=== PATIENT | female | born 1980 | race Caucasian/White ===

== ENCOUNTER 2020-10-12 12:38 | Emergency (ER) | payer MEDICARE, MEDICAID, SELFPAY ==
[2020-10-12 12:50] VITALS: BP 104/71; PULSE 120; RESP 18; TEMP 36.8; O2SAT 94; BMI 31.8
--- NOTE | 2020-10-12 13:27 | CTR_ITS ---
PROCEDURE INFORMATION: Exam: CT Abdomen And Pelvis With Contrast Exam date and time: 10/12/2020 1:27 PM Age: 40 years old Clinical indication: Abdominal pain; Localized; Right lower quadrant (rlq); Prior surgery; Surgery type: Kidney transplant; Additional info: Rlq pain, appy, R kidney transplant but has failed at 19yo. TECHNIQUE: Imaging protocol: Computed tomography of the abdomen and pelvis with contrast. Axial, coronal and sagittal reformatted images were created and reviewed. Radiation optimization: All CT scans at this facility use at least one of these dose optimization techniques: automated exposure control; mA and/or kV adjustment per patient size (includes targeted exams where dose is matched to clinical indication); or iterative reconstruction. Contrast material: VISI 320; Contrast volume: 75 ml; Contrast route: INTRAVENOUS (IV); COMPARISON: MRI Lumbar Spine w/o [id number] 08/11/2017 3:27 PM RADIATION DOSE METRICS: Total DLP (mGy-cm): 1342.73 FINDINGS: Lungs: Linear stranding and groundglass at the lung bases, likely due to atelectasis and/or scarring. Liver: Unremarkable. Gallbladder and bile ducts: Mild intrahepatic biliary ductal dilatation. Pancreas: Unremarkable. Spleen: Unremarkable. Adrenal glands: Normal. No mass. Kidneys and ureters: Atrophic kidneys. Calcified right lower quadrant renal transplant. No radiodense calculi. No hydronephrosis. Severe renal osteodystrophy. Multilevel vertebral body loss of height, most severe at L4. No CT evidence of acute fracture or dislocation. Total hip arthroplasties in place with an expansile lucent lesion associated with the left acetabular component, similar to prior and likely secondary to osteolysis. Stomach and bowel: Moderate to large amount of retained stool in the right colon. Mild wall thickening of the terminal ileum and cecum. No obstruction. No pneumatosis. Appendix: Normal. Intraperitoneal space: No free fluid. No organized fluid collection. No free air. Vasculature: Mild atherosclerotic disease. No aneurysm or dissection. Lymph nodes: No pathologically enlarged lymph nodes. Urinary bladder: Unremarkable as visualized. Reproductive: Unremarkable. Bones/joints: See Kidneys and ureters finding. Soft tissues: Unremarkable. CT/CT abdomen pelvis w con* [id number] IMPRESSION: 1. Findings suggestive of mild terminal ileitis and cecitis, as described above. 2. Additional findings, as above. Radiation Dose CTDIVOL = (mGy): DLP = 1342.73 (mGy-cm)
[2020-10-12 14:11] LABS: Basophils % 0.3 %; Eosinophils # 0.2 10^3/uL (0.0-0.8); Eosinophils % 1.6 %; Hematocrit 36.2 % (37.0-47.0); Hemoglobin 12.1 g/dL (11.5-15.3); Lymphocytes # 0.8 10^3/uL (0.8-4.8); Lymphocytes % 7.1 %; Mean Corpuscular HGB Conc 33.4 g/dL (30.0-36.0); Mean Corpuscular Hemoglobin 29.6 pg (28.0-34.0); Mean Corpuscular Volume 88.5 fL (81-99); Mean Platelet Volume 9.6 fL (7.4-10.4); Monocytes # 0.6 10^3/uL (0.2-0.9); Monocytes % 5.6 %; Neutrophils # 9.68 10^3/uL (1.8-7.7); Nucleated Red Blood Cells % 0 %; Platelet Count 176 10^3/cmm (130-400); Red Blood Count 4.09 10^6/uL (4.1-5.3); White Blood Count 11.4 10^3/uL (4.0-10.0)
--- NOTE | 2020-10-12 14:23 | W.ED.ABDPA2 ---
Documented by User: Carly Ramsey DO 10/12/20 17:12 HPI - Abdominal Pain General: Chief Complaint: Abdominal Pain Stated Complaint: right side pain lower abd Time Seen by Provider: 10/12/20 13:00 History of Present Illness: HPI narrative: 40-year-old female dialysis patient resents with right lower quadrant abdominal pain that started yesterday and it is associated with anorexia and nausea. However patient says she has chronic nausea. Patient had a right renal transplant when she was 10 years old and it failed when she was 19 and she has been on dialysis for 21 years. She denies any fevers. She has chronic tachycardia and that is not unusual for her heart rate. She has no diarrhea. She does not produce any urine. She felt that the car ride possibly was uncomfortable but she cannot be certain. No known fevers Review of Systems Narrative: General: denies fatigue, fever or chills HEENT: denies ear pain, denies nasal congestion, denies vision changes, denies sore throat Neck: denies masses or pain Resp: denies cough, denies shortness of breath, denies pleuritic pain Cardio: denies chest pain, denies edema GI: RLQ abdominal pain, see HPI denies black/tarry or bloody stools : denies hematuria, denies dysuria Neuro: denies headache, denies dizziness, denies motor or sensory changes Musculoskeletal: denies pain, denies swelling Skin: denies rashes Psych: denies SI or HI Endocrine: denies thyroid symptoms, denies lymphadenopathy all over ROS reviewed and patient denies Physical Exam Narrative: EXAM NARRATIVE: General: a/o/3, no distress Head: atraumatic HEENT: normal eyes, normal conjunctiva, normal hearing, normal external nose, normal mouth, mucous membranes moist Neck: FROM, trachea midline Chest: normal expansion, no gross deformities Resp: normal speech, no retractions, no accessory muscle use, CTA bilaterally Cardio: regular rate and rhythm and no murmur, no peripheral edema, normal peripheral pulses barrel chest GI: soft,tender R mid to RLQ, no guarding normal BS : deferred Musculoskeletal: FROM, no pain or gross deformities, graft right arm Neuro: a/o appropriate for age, no gross motor or sensory deficits, CN II-XII grossly intact, normal coordination, normal speech Skin: no rashes Psych: cooperative, normal mood and effect Course Vital Signs: Vital signs: Vital Signs Temperature 98.2 F 10/12/20 12:50 Pulse Rate 114 H 10/12/20 19:07 Respiratory Rate 18 10/12/20 20:14 Blood Pressure 90/62 10/12/20 20:14 Pulse Oximetry 97 10/12/20 20:14 MDM - Abdominal Pain MDM Narrative: Medical decision making narrative: I contacted nephrology Dr. Vasquez and patient is due for dialysis tomorrow therefore he approved for me to give her IV contrast. CT scan shows a normal appendix she has a moderate to large amount of stool in the right side of her colon and some mild inflammation of her bowels. Spoke with the patient she says now that she thinks about it had been taking which she feels is excess fluid off and that maybe she is been a little dry or dehydrated. She appears more comfortable now in the ER. Her potassium is significantly high at 7.9 but patient says she is really not surprised is been running high in dialysis is aware of it. But I will consult with nephrology. However we discussed about her stool issue and she has Dulcolax at home that she takes [id number] daily so what working to do is try to get her evacuated whether it be with the Dulcolax and the Kayexalate that she also has at home and then she is can a see how her pain is and we discussed the potential of a colitis and she has some inflammation in that area but the question is is a constipation causing inflammation of the inflammation causing the constipation. So we came up with the plan that she is going to take 20 mg of Dulcolax when she gets home tonight and see if that improves her pain if in the next 24 hours she is continued to have pain she is can start antibiotics on Tuesday go ahead and write out Cipro and Flagyl and I will speak to nephrology as well about a renal dose she is only can get those filled if she does not improve on her pain Patient's potassium however came back at 7.9 patient says that dialysis is aware of it and knows that she runs this high I find this to be extremely high and do not feel comfortable sending her home without clearance with nephrology and making sure they are aware of it. She had a normal sinus rhythm rate was [address] changes or sinusoidal pattern. Dr Welch agrees that absolutely she needs treatment she will get 1 amp of calcium gluconate 10 mg of insulin and amp of D50 as well as 30 mg of Kayexalate and to repeat her potassium and she can only go home when it is less than 6. As far as antibiotics we will write her out for some Levaquin 750 mg to take Fridays after her dialysis skip Sundays and a normal dose her on the Flagyl patient again says she only wants to take those if she does not improve with bowel movements. We will repeat her potassium in a couple of hours care was transitioned at shift change to Dr. Kolb who will repeat her potassium and disposition accordingly Lab Data: Labs: Lab Results 10/12/20 10/12/20 10/12/20 Range/Units 14:04 14:04 15:47 WBC 11.4 H (4.0-10.0) 10^3/ uL RBC 4.09 L (4.1-5.3) 10^6/u L Hgb 12.1 (11.5-15.3) g/dL Hct 36.2 L (37.0-47.0) % MCV 88.5 (81-99) fL MCH 29.6 (28.0-34.0) pg MCHC 33.4 (30.0-36.0) g/dL RDW 16.0 H (12.1-15.1) % Plt Count 176 (130-400) 10^3/c mm MPV 9.6 (7.4-10.4) fL Neut % (Auto) 85.0 % Lymph % (Auto) 7.1 % Sullivan % (Auto) 5.6 % Eos % (Auto) 1.6 % Baso % (Auto) 0.3 % Neut # (Auto) 9.68 H (1.8-7.7) 10^3/u L Lymph # (Auto) 0.8 (0.8-4.8) 10^3/u L Sullivan # (Auto) 0.6 (0.2-0.9) 10^3/u L Eos # (Auto) 0.2 (0.0-0.8) 10^3/u L Baso # (Auto) 0.0 (0.0-0.1) 10^3/u L Nucleated RBC % (a uto) 0 % Nucleated RBCs # 0.0 /100WBC Sodium Cancelled 128 L Potassium Cancelled 7.9 H* Chloride Cancelled 86 L Carbon Dioxide Cancelled 28 Anion Gap Cancelled 21.9 H BUN Cancelled 71 H Creatinine Cancelled 7.2 H* GFR Calculation Cancelled 6.3 L Glucose Cancelled 75 POC Glucose (70-110) mg/dL Calculated Osmolal ity Cancelled 286 Calcium Cancelled 9.2 Total Bilirubin Cancelled 0.2 AST Cancelled 16 ALT Cancelled 10 Alkaline Phosphata se Cancelled 125 H Total Protein Cancelled 7.2 Albumin Cancelled 3.7 Globulin Cancelled 3.5 Lipase Cancelled 17 10/12/20 10/12/20 Range/Units 19:05 19:28 WBC (4.0-10.0) 10^3/ uL RBC (4.1-5.3) 10^6/u L Hgb (11.5-15.3) g/dL Hct (37.0-47.0) % MCV (81-99) fL MCH (28.0-34.0) pg MCHC (30.0-36.0) g/dL RDW (12.1-15.1) % Plt Count (130-400) 10^3/c mm MPV (7.4-10.4) fL Neut % (Auto) % Lymph % (Auto) % Sullivan % (Auto) % Eos % (Auto) % Baso % (Auto) % Neut # (Auto) (1.8-7.7) 10^3/u L Lymph # (Auto) (0.8-4.8) 10^3/u L Sullivan # (Auto) (0.2-0.9) 10^3/u L Eos # (Auto) (0.0-0.8) 10^3/u L Baso # (Auto) (0.0-0.1) 10^3/u L Nucleated RBC % (a uto) % Nucleated RBCs # /100WBC Sodium Potassium 6.7 H* Chloride Carbon Dioxide Anion Gap BUN Creatinine GFR Calculation Glucose POC Glucose 61 L (70-110) mg/dL Calculated Osmolal ity Calcium Total Bilirubin AST ALT Alkaline Phosphata se Total Protein Albumin Globulin Lipase Discharge Plan Discharge Patient Disposition: Home Clinical Impression: Acute hyperkalemia, ESRD on dialysis Abdominal pain Qualifiers: Abdominal location: right lower quadrant Qualified Code(s): R10.31 - Right lower quadrant pain Constipation Qualifiers: Constipation type: unspecified constipation type Qualified Code(s): K59.00 - Constipation, unspecified Condition: Stable Prescriptions: New levofloxacin 750 mg tablet 750 mg PO Q24H Qty: 10 RF: 0 metronidazole 500 mg tablet 500 mg PO Q8H 7 Days Qty: 21 RF: 0 Discharge Orders: Discharge ED (Routine); Ordered 10/12/20 Ordered By: Adrien Kolb Discharge Diet: Advance as tolerated Discharge Activity: Increase activity as tolerated Patient Instructions: Abdominal Pain (ED), Opioid Safety Activity Restrictions/Additional Instructions: Take your Kayexalate when you get home. Go ahead and try 20 mg of Dulcolax at your discretion either tonight or you can wait until after dialysis tomorrow. See if this improves your pain. If you continue to have pain then you need to start the antibiotics that would be Levaquin 750 mg 1 tablet after dialysis on Fridays and skip Tuesday for total of 10 doses The Flagyl is 500 mg 3 times a day for 7 days Get dialysis tomorrow as scheduled repeat your potassium Return if pain or worsening of symptoms fevers Thank you for choosing [facility] for your healthcare needs today. Please realize this is an emergency room and that we are providing you with a medical screening exam and this may not be complete and all inclusive of all the testing and or work up that you may need to determine your ailment or severity of your illness. It is very important that you follow up as instructed or that you return to the Emergency Department should you have concerns or if your condition changes or worsens in any way. Coding Level of Care Code ED Chief Physical Therapist for Chg Fwd Documented by User: Adrien Kolb, 10/13/20 00:42 HPI - Abdominal Pain General: Chief Complaint: Abdominal Pain Stated Complaint: right side pain lower abd Time Seen by Provider: 10/12/20 13:00 Course Vital Signs: Vital signs: Vital Signs Temperature 98.2 F 10/12/20 12:50 Pulse Rate 114 H 10/12/20 19:07 Respiratory Rate 18 10/12/20 20:14 Blood Pressure 90/62 10/12/20 20:14 Pulse Oximetry 97 10/12/20 20:14 MDM - Abdominal Pain MDM Narrative: Medical decision making narrative: Repeat potassium is 6.7, which the patient says is normal for her. Blood sugar sent to 61, as she had not eaten all day, so she is eating here and is feeling better. We will allow her home with previous instructions. She knows to take her Kayexalate when she gets home. Lab Data: Labs: Lab Results 10/12/20 10/12/20 10/12/20 Range/Units 14:04 14:04 15:47 WBC 11.4 H (4.0-10.0) 10^3/ uL RBC 4.09 L (4.1-5.3) 10^6/u L Hgb 12.1 (11.5-15.3) g/dL Hct 36.2 L (37.0-47.0) % MCV 88.5 (81-99) fL MCH 29.6 (28.0-34.0) pg MCHC 33.4 (30.0-36.0) g/dL RDW 16.0 H (12.1-15.1) % Plt Count 176 (130-400) 10^3/c mm MPV 9.6 (7.4-10.4) fL Neut % (Auto) 85.0 % Lymph % (Auto) 7.1 % Sullivan % (Auto) 5.6 % Eos % (Auto) 1.6 % Baso % (Auto) 0.3 % Neut # (Auto) 9.68 H (1.8-7.7) 10^3/u L Lymph # (Auto) 0.8 (0.8-4.8) 10^3/u L Sullivan # (Auto) 0.6 (0.2-0.9) 10^3/u L Eos # (Auto) 0.2 (0.0-0.8) 10^3/u L Baso # (Auto) 0.0 (0.0-0.1) 10^3/u L Nucleated RBC % (a uto) 0 % Nucleated RBCs # 0.0 /100WBC Sodium Cancelled 128 L Potassium Cancelled 7.9 H* Chloride Cancelled 86 L Carbon Dioxide Cancelled 28 Anion Gap Cancelled 21.9 H BUN Cancelled 71 H Creatinine Cancelled 7.2 H* GFR Calculation Cancelled 6.3 L Glucose Cancelled 75 POC Glucose (70-110) mg/dL Calculated Osmolal ity Cancelled 286 Calcium Cancelled 9.2 Total Bilirubin Cancelled 0.2 AST Cancelled 16 ALT Cancelled 10 Alkaline Phosphata se Cancelled 125 H Total Protein Cancelled 7.2 Albumin Cancelled 3.7 Globulin Cancelled 3.5 Lipase Cancelled 17 10/12/20 10/12/20 Range/Units 19:05 19:28 WBC (4.0-10.0) 10^3/ uL RBC (4.1-5.3) 10^6/u L Hgb (11.5-15.3) g/dL Hct (37.0-47.0) % MCV (81-99) fL MCH (28.0-34.0) pg MCHC (30.0-36.0) g/dL RDW (12.1-15.1) % Plt Count (130-400) 10^3/c mm MPV (7.4-10.4) fL Neut % (Auto) % Lymph % (Auto) % Sullivan % (Auto) % Eos % (Auto) % Baso % (Auto) % Neut # (Auto) (1.8-7.7) 10^3/u L Lymph # (Auto) (0.8-4.8) 10^3/u L Sullivan # (Auto) (0.2-0.9) 10^3/u L Eos # (Auto) (0.0-0.8) 10^3/u L Baso # (Auto) (0.0-0.1) 10^3/u L Nucleated RBC % (a uto) % Nucleated RBCs # /100WBC Sodium Potassium 6.7 H* Chloride Carbon Dioxide Anion Gap BUN Creatinine GFR Calculation Glucose POC Glucose 61 L (70-110) mg/dL Calculated Osmolal ity Calcium Total Bilirubin AST ALT Alkaline Phosphata se Total Protein Albumin Globulin Lipase Discharge Plan Discharge Patient Disposition: Home Clinical Impression: Acute hyperkalemia, ESRD on dialysis Abdominal pain Qualifiers: Abdominal location: right lower quadrant Qualified Code(s): R10.31 - Right lower quadrant pain Constipation Qualifiers: Constipation type: unspecified constipation type Qualified Code(s): K59.00 - Constipation, unspecified Condition: Stable Prescriptions: New levofloxacin 750 mg tablet 750 mg PO Q24H Qty: 10 RF: 0 metronidazole 500 mg tablet 500 mg PO Q8H 7 Days Qty: 21 RF: 0 Discharge Orders: Discharge ED (Routine); Ordered 10/12/20 Ordered By: Adrien Kolb Discharge Diet: Advance as tolerated Discharge Activity: Increase activity as tolerated Patient Instructions: Abdominal Pain (ED), Opioid Safety Activity Restrictions/Additional Instructions: Take your Kayexalate when you get home. Go ahead and try 20 mg of Dulcolax at your discretion either tonight or you can wait until after dialysis tomorrow. See if this improves your pain. If you continue to have pain then you need to start the antibiotics that would be Levaquin 750 mg 1 tablet after dialysis on Fridays and skip Tuesday for total of 10 doses The Flagyl is 500 mg 3 times a day for 7 days Get dialysis tomorrow as scheduled repeat your potassium Return if pain or worsening of symptoms fevers Thank you for choosing [facility] for your healthcare needs today. Please realize this is an emergency room and that we are providing you with a medical screening exam and this may not be complete and all inclusive of all the testing and or work up that you may need to determine your ailment or severity of your illness. It is very important that you follow up as instructed or that you return to the Emergency Department should you have concerns or if your condition changes or worsens in any way. Coding Level of Care Code ED Chief Physical Therapist for Robbi Ng
[2020-10-12] MEDS: ondansetron 2 mg/ML SDV 2 mL 8 MG IVP (14:35)
[2020-10-12] MEDS: iodixanol 320 mg/mL 100mL Btl IV (14:52)
[2020-10-12 15:42] VITALS: RESP 18
[2020-10-12] MEDS: HYDROmorphone 1 mg/mL INJ 1 mL IVP (15:42)
[2020-10-12 16:15] LABS: Alanine Aminotransferase 10 U/L (0-33); Albumin Level 3.7 g/dL (3.5-5.2); Alkaline Phosphatase 125 IU/L (35-105); Anion Gap 21.9 (5-19); Aspartate Amino Transferase 16 U/L (0-32); Blood Urea Nitrogen 71 mg/dL (6-20); Calcium 9.2 mg/dL (8.5-10.5); Carbon Dioxide 28 mmol/L (22-29); Chloride 86 mmol/L (98-107); Globulin 3.5 g/dL (1.3-4.6); Glomerular Filtration Rate 6.3 mL/min (90-130); Glucose 75 mg/dL (65-115); Lipase 17 U/L (13-60); Osmolality Calculated 286 mOsm/kg (285-295); Sodium 128 mmol/L (136-145); Total Bilirubin 0.2 mg/dL (0.15-1.2); Total Protein 7.2 g/dL (6.6-8.7)
[2020-10-12 16:21] LABS: Potassium 7.9 mmol/L (3.5-5.1)
--- NOTE | 2020-10-12 16:29 | ECG_ITS ---
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 Measurements Intervals [place] Rate: 100 P: 21 NC: 159 QRS: -47 QRSD: 120 T: 57 QT: 334 QTc: 432 Interpretive Statements SINUS TACHYCARDIA LEFT ANTERIOR FASCICULAR BLOCK [QRS AXIS <= -45, QR IN I, RS IN II] Compared to ECG 03/02/2017 15:13:18 Left anterior fascicular block now present Left ventricular hypertrophy no longer present Electronically Signed On 10-12-2020 19:11:32 CDT by Valery Cuba M.D. [id number]
[2020-10-12] MEDS: sodium polystyrene sulfonate 15 gm/60 mL Btl 30 GM PO (17:31)
[2020-10-12] MEDS: insulin regular-human 100 units/1 mL 10 UNIT IVP (17:32)
[2020-10-12] MEDS: dextrose 50% syringe 50 mL IVP (17:32)
[2020-10-12] MEDS: sodium bicarbonate 8.4% 1 mEq/mL 50mL Syr 50 MEQ IVP (18:11)
[2020-10-12 18:18] VITALS: BP 89/52; PULSE 121; RESP 20; O2SAT 97
[2020-10-12 18:41] VITALS: BP 90/56; PULSE 107; RESP 20; O2SAT 98
[2020-10-12 19:07] VITALS: BP 99/64; PULSE 114; RESP 18; O2SAT 94
[2020-10-12 19:09] LABS: Glucose Point of Care 61 mg/dL (70-110)
[2020-10-12 19:59] LABS: Potassium 6.7 mmol/L (3.5-5.1)
[2020-10-12 20:14] VITALS: BP 90/62; RESP 18; O2SAT 97
== END 2020-10-12 20:15 | disposition home or self-care (01) ==
PROVIDERS: Emergency Medicine; Emergency Provider Emergency Medicine
DX: K59.00 Constipation, unspecified (principal); E87.5 Hyperkalemia; N18.6 End stage renal disease; Z99.2 Dependence on renal dialysis; Z94.0 Kidney transplant status
CPT/HCPCS: 36415; 36416; 74177; 80053; 82962; 83690; 84132; 85025; 93005; 96365; 96375; 99284; J0610; J1170; J1815; J2405; Q9967

== ENCOUNTER 2022-09-06 09:52 | Inpatient (IN) | payer MEDICARE, MEDICAID, SELFPAY ==
[2022-09-06] VITALS (9 sets, daily range): BP systolic 71–111; BP diastolic 48–67; PULSE 94–130; RESP 16; TEMP 36.9–37.1; O2SAT 90–97; BMI 36.1
[2022-09-06 10:55] LABS: Basophils % 0.5 %; Eosinophils # 0.2 10^3/uL (0.0-0.8); Eosinophils % 2.2 %; Hematocrit 41.4 % (37.0-47.0); Lymphocytes % 12.2 %; Mean Corpuscular HGB Conc 31.4 g/dL (30.0-36.0); Mean Corpuscular Hemoglobin 26.9 pg (28.0-34.0); Mean Corpuscular Volume 85.7 fl (81-99); Mean Platelet Volume 9.5 fL (7.4-10.4); Monocytes # 0.9 10^3/uL (0.2-0.9); Monocytes % 10.4 %; Neutrophils # 6.06 10^3/uL (1.8-7.7); Neutrophils % 74.5 %; Nucleated Red Blood Cells % 0 %; Platelet Count 271 10^3/cmm (130-400); Red Blood Count 4.83 10^6/uL (4.1-5.3); Red Cell Distribution Width 15.9 % (12.1-15.1); White Blood Count 8.1 10^3/uL (4.0-10.0)
[2022-09-06 11:08] LABS: HCG, Serum Qual Negative (Negative)
[2022-09-06 11:13] LABS: Alanine Aminotransferase 7 U/L (0-33); Albumin Level 3.9 g/dL (3.5-5.2); Alkaline Phosphatase 146 U/L (35-105); Anion Gap 26.5 (5-19); Aspartate Amino Transferase 14 U/L (0-32); Blood Urea Nitrogen 45 mg/dL (6-20); Calcium 8.8 mg/dL (8.5-10.5); Carbon Dioxide 25 mmol/L (22-29); Chloride 87 mmol/L (98-107); Globulin 3.9 g/dL (1.3-4.6); Glomerular Filtration Rate 5.7 mL/min (90-130); Glucose 94 mg/dL (65-115); Magnesium 2.3 mg/dL (1.7-2.3); Osmolality Calculated 291 mOsm/kg (285-295); Potassium 3.5 mmol/L (3.5-5.1); Sodium 135 mmol/L (136-145); Total Bilirubin 0.3 mg/dL (0.15-1.2); Total Protein 7.8 g/dL (6.6-8.7)
--- NOTE | 2022-09-06 12:13 | CT_ITS ---
WS: [id number] CT ABDOMEN AND PELVIS NONCONTRAST HISTORY: Right-sided abdominal pain. TECHNIQUE: Imaging performed through the abdomen and pelvis. Coronal and sagittal reformats are submi tted. All CT scans at [facility] use at least one of these dose optimization techniques: auto mated exposure control; mA and/or kV adjustment per patient size (includes targeted exams where dose is matched to clinical indication); or iterative reconstruction. DLP: 705.80 mGy.cm COMPARISON: 10/12/2020 Lower thorax: Increased AP diameter of the thorax. No pneumonia. Marked cardiomegaly. No effusion. No hernia. Liver: Normal size liver. No mass or bile duct dilatation. Gallbladder: Normal gallbladder. No pericholecystic fluid or cholelithiasis. No gallbladder wall thic kening. Pancreas: Normal size and attenuation. Normal pancreatic duct. No pancreatitis or mass. Spleen: Normal. Adrenal glands: Normal. No mass. Right kidney: Severe atrophy. Left kidney: Severe atrophy. Aorta: Mild atherosclerosis abdominal aorta with no aneurysm. No free fluid, intraperitoneal air or significant lymphadenopathy. GI tract: Minimally distended stomach. Small bowel is distended with fluid with diameter measuring 3. 3 cm. Mid to distal small bowel is predominantly dilated. There is an air-fluid level. Impression RIGHT is not definitely evident. Fecal retention in the colon greatest involving the RIGHT colon. The distal colon is more collapsed. Abdominal wall: Negative. No hernia. Pelvis: There is a large calcification the RIGHT lower quadrant which may be a calcified renal implan t. Seen on the prior study from 10/12/2020. No free fluid or adenopathy in the pelvis. Osseous structures: Bilateral hip prostheses. LEFT hip prosthesis has migrated medially. Expansile le gerardo again identified within the LEFT acetabulum is unchanged. Diffuse osteopenia. Numerous biconcave vertebral body fractures in the visualized thoracic and lumbar spines. Most significant at L4. CT/CT abdomen pelvis wo con [id number] IMPRESSION: 1. High-grade mid to distal small bowel obstruction. Site of transition is not apparent. No pneumatosis or free air at this time. 2. RIGHT colon constipation. 3. Severe renal atrophy. 4. Biconcave lower thoracic and lumbar vertebral body fractures. 5. Cardiomegaly.
--- NOTE | 2022-09-06 12:15 | W.ED.ABDPA2 ---
HPI - Abdominal Pain General: Chief Complaint: Abdominal Pain Stated Complaint: abd pain 4xdays Time Seen by Provider: 09/06/22 11:42 History of Present Illness: Patient presents to the ER with abdominal pain on the right side x4 days. Patient has had nausea with this. Patient is a hemodialysis patient. Patient is post have dialysis tonight. Patient did vomit last night with minimal relief in abdominal pain. Patient is on pain pills and has history of constipation usually controlled with laxatives. MD elicited complaint: abdominal pain Pertinent past history: constipation Onset (ago): day(s) (About 4 days ago) Pain Consistency: constant Location: RUQ and RLQ Severity: moderate Quality: aching Radiation: none Migration to: no migration Exacerbating factors: eating and movement Relieving factors: nothing Associated Symptoms: Reports nausea and vomiting; Denies chills, dysuria and fever(s) Review of Systems General: Reports: 10 or more systems reviewed and unremarkable except in HPI and below Const: Denies: fever(s) or chills Eyes: Denies: change in vision or photophobia ENMT: Denies: throat pain or odynophagia Card: Denies: chest pain, palpitations or irregular heart rhythm Resp: Denies: dyspnea, productive cough or non-productive cough GI: Reports: abdominal pain, nausea and vomiting : Denies: flank pain, difficulty voiding or dysuria Musc: Denies: neck pain, back pain or extremity pain Skin/Breast: Denies: rash or pruritus Neuro: Denies: headache(s) or numbness in extremities PFSH ED PFSH: Medical History (Updated 09/06/22 @ 16:06 by Kevin Justin DO) Autosomal recessive polycystic kidney disease ESRD on dialysis On dialysis since age 19 due to failed renal transplant 1 para 1 Osteoporosis Surgical History (Updated 09/06/22 @ 15:54 by Nida Carey MD) History of arthroscopy of right knee History of bilateral hip replacements History of renal transplant right kidney age 10 (father was donor), failed when 19 yo History of surgery on upper extremity Right elbow ligaments Family History (Updated 09/06/22 @ 15:31 by Nida Carey MD) Father Diabetes Social History (Updated 09/06/22 @ 15:54 by Nida Carey MD) Smoking and tobacco status: never smoked Alcohol intake: never Substance/Drug Use: never Marital status: Physical Exam Const: COMMON NORMALS: no acute distress, average body habitus, patient oriented x3, no limitations, healthy appearing, alert and well nourished HENMT: COMMON NORMALS: normocephalic, hearing grossly normal bilaterally, external ears normal, Normal external nose present and moist oral mucous membranes HEAD & SCALP: normocephalic NOSE: Normal external nose present EXTERNAL EAR: Yes external ears normal Eye: COMMON NORMALS: Equal, round and reactive pupils present, EOMs intact bilaterally, conjunctivae normal and no scleral icterus CONJUNCTIVA: Yes conjunctivae normal PUPIL: Yes Equal, round and reactive pupils present Neck/C-Spine: COMMON NORMALS: full ROM, no lymphadenopathy, supple, no meningeal signs, no JVD and Thyroid normal THYROID: Thyroid normal Lymph: LYMPHATIC: no lymphadenopathy noted Chest: COMMONS NORMALS: normal inspection of the chest and normal palpation of entire chest wall Resp: COMMON NORMALS: normal respiratory effort, No retractions, No use of accessory muscles and clear to auscultation bilaterally AUSCULTATION: clear to auscultation bilaterally Cardio: COMMON NORMALS: no JVD, regular rate, regular rhythm, S1 normal heart sound present and S2 normal heart sound present RATE: regular rate RHYTHM: regular rhythm HEART SOUNDS: S1 normal heart sound present and S2 normal heart sound present GI: COMMON NORMALS: Normal to inspection, nondistended, normoactive bowel sounds present and Soft to palpation PALPATION: Yes Soft to palpation and Yes Tenderness to palpation present (GI) : COMMON NORMALS: Yes no CVA tenderness BLADDER/KIDNEY EXAM: Yes no CVA tenderness Back/Pelvis: COMMON NORMALS: no CVA tenderness Neuro: COMMON NORMALS: patient oriented x3 SENSORIUM/ORIENTATION: Yes alert MENINGEAL SIGNS: Yes no meningeal signs Course Vital Signs: Vital signs: Vital Signs Temperature 98.4 F 09/06/22 10:01 Pulse Rate 113 H 09/06/22 15:32 Blood Pressure 85/58 09/06/22 15:32 Pulse Oximetry 95 09/06/22 15:32 Oxygen Delivery Me thod Room Air 09/06/22 15:32 MDM - Abdominal Pain Medical Decision Making Patient presents to the ER with complaints of right abdominal pain with nausea x4 days. Imaging and lab work was obtained which showed patient to have a BUN/creatinine of 45 and 7.8 patient is a home hemodialysis patient. Imaging showed patient to have high-grade mid to distal small bowel obstruction site of transition is not apparent., Right colon constipation, patient will be admitted for small bowel obstruction patient had an NG tube placed as well as an IV. Dr. Carey was consulted and agreed for admission. Dr. Erickson will follow from a general surgery and Dr. Abelino arteaga from a nephrology standpoint. They both have been notified. Differential Diagnosis Likely abdominal pain; Unlikely acute appendicitis, calculus of kidney, constipation, diverticulitis, endometriosis, gastroenteritis, pancreatitis or small bowel obstruction Lab Data 09/06/22 10:43 09/06/22 10:43 Labs/Radiology: Radiology Impressions Abdomen/Pelvis CT 09/06/22 12:13 IMPRESSION: 1. High-grade mid to distal small bowel obstruction. Site of transition is not apparent. No pneumatosis or free air at this time. 2. RIGHT colon constipation. 3. Severe renal atrophy. 4. Biconcave lower thoracic and lumbar vertebral body fractures. 5. Cardiomegaly. Laboratory Results WBC 8.1 10^3/uL (4.0-10.0) 09/06/22 10:43 RBC 4.83 10^6/uL (4.1-5.3) 09/06/22 10:43 Hgb 13.0 g/dL (11.5-15.3) 09/06/22 10:43 Hct 41.4 % (37.0-47.0) 09/06/22 10:43 MCV 85.7 fl (81-99) 09/06/22 10:43 MCH 26.9 pg (28.0-34.0) L 09/06/22 10:43 MCHC 31.4 g/dL (30.0-36.0) 09/06/22 10:43 RDW 15.9 % (12.1-15.1) H 09/06/22 10:43 Plt Count 271 10^3/cmm (130-400) 09/06/22 10:43 MPV 9.5 fL (7.4-10.4) 09/06/22 10:43 Neut % (Auto) 74.5 % 09/06/22 10:43 Lymph % (Auto) 12.2 % 09/06/22 10:43 [place] % (Auto) 10.4 % 09/06/22 10:43 Eos % (Auto) 2.2 % 09/06/22 10:43 Baso % (Auto) 0.5 % 09/06/22 10:43 Neut # (Auto) 6.06 10^3/uL (1.8-7.7) 09/06/22 10:43 Lymph # (Auto) 1.0 10^3/uL (0.8-4.8) 09/06/22 10:43 [place] # (Auto) 0.9 10^3/uL (0.2-0.9) 09/06/22 10:43 Eos # (Auto) 0.2 10^3/uL (0.0-0.8) 09/06/22 10:43 Baso # (Auto) 0.0 10^3/uL (0.0-0.1) 09/06/22 10:43 Nucleated RBC % (auto) 0 % 09/06/22 10:43 Nucleated RBCs # 0.0 /100WBC 09/06/22 10:43 Sodium 135 mmol/L (136-145) L 09/06/22 10:43 Potassium 3.5 mmol/L (3.5-5.1) 09/06/22 10:43 Chloride 87 mmol/L (98-107) L 09/06/22 10:43 Carbon Dioxide 25 mmol/L (22-29) 09/06/22 10:43 Anion Gap 26.5 (5-19) H 09/06/22 10:43 BUN 45 mg/dL (6-20) H 09/06/22 10:43 Creatinine 7.8 mg/dL (0.5-0.9) H* 09/06/22 10:43 GFR Calculation 5.7 mL/min (90-130) L 09/06/22 10:43 Glucose 94 mg/dL (65-115) 09/06/22 10:43 Calculated Osmolality 291 mOsm/kg (285-295) 09/06/22 10:43 Calcium 8.8 mg/dL (8.5-10.5) 09/06/22 10:43 Phosphorus 4.5 mg/dL (2.5-4.5) 09/06/22 10:43 Magnesium 2.3 mg/dL (1.7-2.3) 09/06/22 10:43 Total Bilirubin 0.3 mg/dL (0.15-1.2) 09/06/22 10:43 AST 14 U/L (0-32) 09/06/22 10:43 ALT 7 U/L (0-33) 09/06/22 10:43 Alkaline Phosphatase 146 U/L (35-105) H 09/06/22 10:43 Total Protein 7.8 g/dL (6.6-8.7) 09/06/22 10:43 Albumin 3.9 g/dL (3.5-5.2) 09/06/22 10:43 Globulin 3.9 g/dL (1.3-4.6) 09/06/22 10:43 HCG, Qual Negative (Negative) 09/06/22 10:43 Discharge Plan Discharge Patient Disposition: Admitted As Inpatient Clinical Impression: Small bowel obstruction, ESRD on dialysis, Constipation Condition: Stable Prescriptions: No Action sevelamer HCl 800 mg tablet See Rx Instructions .ROUTE .COMPLEX Rx Instructions: TAKE 4 TABLETS BY MOUTH THREE TIMES DAILY WITH MEALS & TAKE 1 TABLET WITH SNACK alprazolam 0.25 mg tablet 0.25 mg PO DAILY PRN (Reason: Anxiety) temazepam 30 mg capsule 15 mg PO BEDTIME Benadryl 25 mg Capsule 75 mg PO BEDTIME megestrol 40 mg tablet 40 mg PO BEDTIME Stool Softener 100 mg Capsule 200 mg PO BID Viviana-Darrel 0.8 mg Tablet 1 tab PO BEDTIME oxycodone-acetaminophen 7.5-325 mg tablet 1 - 2 tab PO .EVERY 4-6 HOURS MDD 6 tabs PRN (Reason: Pain) ondansetron 4 mg tablet,disintegrating 4 mg PO Q8H PRN (Reason: Nausea And Vomiting) calcitriol 0.25 mcg capsule 0.75 mcg PO BEDTIME cinacalcet 90 mg tablet 180 mg PO BEDTIME RenaPlex-D 800 mcg-12.5 mg -2,000 unit tablet 1 tab PO DAILY Coding Level of Care Code ED Service Technician Copier for Robbi Ng
[2022-09-06] MEDS: morphine 4 mg/mL SDV 1 mL IM (12:36)
[2022-09-06 13:11] LABS: Phosphorus 4.5 mg/dL (2.5-4.5)
--- NOTE | 2022-09-06 14:26 | PC.PHAR ---
pt had pictures of her medications-ext med history shows renaplex-d daily filled 08/14/22 30d/s no picture of this medication pt had a picture of vinayak-jonathan and states she takes one tab hs-pt states she takes temazepam 15mg hs ext shows last filled 08/03/22 30d/s for 30mg hs prn and 15mg take 30mg hs prn filled 05/28/22 30d/s-pt states she hasnt taken her sevelamer for 3 days-pts family states the pt has a rx for heparin for dialysis but states she has never used it-
--- NOTE | 2022-09-06 15:04 | PM.HP ---
Providers/Chief Complaint Admitting Physician: Nida Carey MD Chief Complaint: abd pain 4xdays History of Present Illness Maricarmen Wilkes is a 42 year old female who presented to the emergency room with chief complaint of abdominal pain and constipation. She is also not had much of an appetite. Symptoms began 4 or 5 days ago with some predominantly right sided abdominal discomfort. She has not had a normal bowel movement since several days prior to the onset of discomfort. She does not usually have issues with constipation to this degree though has had to take laxatives at times in addition to regular stool softeners. She has as needed oxycodone for pain from multiple osteoporetic vertebral and other fractures related to her long standing kidney disease. Over the weekend she had minimal appetite and did have some nausea with vomiting. She tried to have some food with Mother's Day but not much. Vomitus was bilious in nature. No blood was noted. She has not had any fever. Denies any left-sided abdominal pain. Overall abdominal girth is more prominent than baseline. Pain was rated at a 9 out of 10. Worse with palpation or movement in the right side. Currently denies any left-sided abdominal pain. Never had anything like this before. Work-up in the emergency room has revealed evidence of a high-grade mid to distal small bowel obstruction on CT imaging. Hospitalist were contacted for admission. Dr. Erickson with surgery has been notified as has nephrology. Mrs. Wilkes has a history of autosomal recessive polycystic kidney disease. She underwent renal transplant at the age of 10. That transplant failed and she has been on dialysis since approximately age 19. The right renal transplant surgery is her only intra-abdominal surgery. She has had minimal relief with morphine. NG tube was ordered but has not yet been placed. She does take alprazolam, temazepam, Zofran and Benadryl prior to her usual home hemodialysis sessions which are done on Mondays, Wednesdays and Fridays. Review of Systems General: Reports: Other (ROS as per HPI or as otherwise noted here) Const: Denies: fever(s) Card: Reports: other (Baseline systolic pressure 90s to low 100s); Denies: chest pain Resp: Denies: dyspnea : Reports: other (hcg negative) Musc: Reports: back pain and extremity pain Medications/Allergies Home Medications Medication Instructions Recorded Confirmed Last Taken Type alprazolam 0.25 mg tablet 0.25 mg PO DAILY PRN Anxiety 09/06/22 09/06/22 Unknown History calcitriol 0.25 mcg capsule 0.75 mcg PO BEDTIME 09/06/22 09/06/22 09/05/22 History cinacalcet 90 mg tablet 180 mg PO BEDTIME 09/06/22 09/06/22 09/05/22 History diphenhydramine HCl 25 mg capsule 75 mg PO BEDTIME 09/06/22 09/06/22 09/05/22 History (Benadryl) docusate sodium 100 mg capsule 200 mg PO BID 09/06/22 09/06/22 09/05/22 History (Stool Softener) megestrol 40 mg tablet 40 mg PO BEDTIME 09/06/22 09/06/22 09/05/22 History ondansetron 4 mg disintegrating 4 mg PO Q8H PRN Nausea And Vomiting 09/06/22 09/06/22 Unknown History tablet oxycodone-acetaminophen 7.5 mg-325 1 - 2 tab PO .EVERY 4-6 HOURS PRN 09/06/22 09/06/22 Unknown History mg tablet Pain sevelamer HCl 800 mg tablet See Rx Instructions .Route .COMPLEX 09/06/22 09/06/22 3 Days Ago History ~09/03/22 temazepam 30 mg capsule 15 mg PO BEDTIME 09/06/22 09/06/22 09/05/22 History see pharmacy comment vit B,C-folic ac 800 mcg-zinc 12.5 1 tab PO DAILY 09/06/22 09/06/22 Unknown History mg-selen-D3 2,000 unit-vit E tablet (RenaPlex-D) vitamin B complex-vitamin C-folic 1 tab PO BEDTIME 09/06/22 09/06/22 09/05/22 History acid 0.8 mg tablet (Viviana-Darrel) Allergies Allergy/AdvReac Type Severity Reaction Status Date / Time gabapentin Allergy ADR/ALGY-Hy Verified 09/06/22 14:07 potension Sulfa (Sulfonamide Allergy ALGY-Hives Verified 09/06/22 14:07 Antibiotics) sulfamethoxazole Allergy Unknown Verified 09/06/22 14:07 [From Bactrim] trimethoprim [From Bactrim] Allergy Unknown Verified 09/06/22 14:07 PFSH Acute PFSH: Medical History (Updated 09/06/22 @ 17:21 by Nida Carey MD) Autosomal recessive polycystic kidney disease ESRD on dialysis On dialysis since age 19 due to failed renal transplant 1 para 1 History of vertebral fracture multiple thoracic and lumbar fractures from osteoporosis Osteoporosis Surgical History (Updated 09/06/22 @ 17:07 by Nida Carey MD) Arteriovenous fistula of right upper extremity History of arthroscopy of right knee History of bilateral hip replacements History of renal transplant right kidney age 10 (father was donor), failed when 19 yo History of surgery on upper extremity Right elbow ligaments Family History (Updated 09/06/22 @ 15:31 by Nida Carey MD) Father Diabetes Social History (Updated 09/06/22 @ 15:54 by Nida Carey MD) Smoking and tobacco status: never smoked Alcohol intake: never Substance/Drug Use: never Marital status: Vitals/I&O/Wt Last Vital Signs Temp 98.4 F 09/06/22 10:01 Pulse 111 H 09/06/22 13:30 BP 87/48 09/06/22 13:30 Pulse Ox 95 09/06/22 13:30 O2 Del Method Room Air 09/06/22 13:30 Weight last 48 hrs Weight 70.5 kg Physical Exam Narrative: Patient is seen lying in bed on the ED stretcher. She is quite uncomfortable and tearful due to pain. Normocephalic. Extraocular movements intact. Nasopharynx is clear. Oropharynx with dry mucous membranes but otherwise clear. Neck is short but supple. Increased diameter of thorax noted. Heart sounds slightly distant but regular. Lungs are clear. Mildly tachypneic with extent of inspiration limited by abdominal pain. Abdomen is slightly distended but soft. Left-sided quadrants without tenderness. No left-sided rebound noted. Right-sided quadrants particularly mid abdomen very tender to palpation with some guarding noted. No clear rebound. Decreased bowel sounds. No pitting edema. Brisk capillary refill. Shortened nailbeds noted. Right upper extremity with positive thrill at AV fistula site. Speech is clear. Moves all extremities. Data 09/06/22 10:43 09/06/22 10:43 Other Labs: Radiology Impressions Abdomen/Pelvis CT 09/06/22 12:13 IMPRESSION: 1. High-grade mid to distal small bowel obstruction. Site of transition is not apparent. No pneumatosis or free air at this time. 2. RIGHT colon constipation. 3. Severe renal atrophy. 4. Biconcave lower thoracic and lumbar vertebral body fractures. 5. Cardiomegaly. Laboratory Results WBC 8.1 10^3/uL (4.0-10.0) 09/06/22 10:43 RBC 4.83 10^6/uL (4.1-5.3) 09/06/22 10:43 Hgb 13.0 g/dL (11.5-15.3) 09/06/22 10:43 Hct 41.4 % (37.0-47.0) 09/06/22 10:43 MCV 85.7 fl (81-99) 09/06/22 10:43 MCH 26.9 pg (28.0-34.0) L 09/06/22 10:43 MCHC 31.4 g/dL (30.0-36.0) 09/06/22 10:43 RDW 15.9 % (12.1-15.1) H 09/06/22 10:43 Plt Count 271 10^3/cmm (130-400) 09/06/22 10:43 MPV 9.5 fL (7.4-10.4) 09/06/22 10:43 Neut % (Auto) 74.5 % 09/06/22 10:43 Lymph % (Auto) 12.2 % 09/06/22 10:43 [place] % (Auto) 10.4 % 09/06/22 10:43 Eos % (Auto) 2.2 % 09/06/22 10:43 Baso % (Auto) 0.5 % 09/06/22 10:43 Neut # (Auto) 6.06 10^3/uL (1.8-7.7) 09/06/22 10:43 Lymph # (Auto) 1.0 10^3/uL (0.8-4.8) 09/06/22 10:43 [place] # (Auto) 0.9 10^3/uL (0.2-0.9) 09/06/22 10:43 Eos # (Auto) 0.2 10^3/uL (0.0-0.8) 09/06/22 10:43 Baso # (Auto) 0.0 10^3/uL (0.0-0.1) 09/06/22 10:43 Nucleated RBC % (auto) 0 % 09/06/22 10:43 Nucleated RBCs # 0.0 /100WBC 09/06/22 10:43 Sodium 135 mmol/L (136-145) L 09/06/22 10:43 Potassium 3.5 mmol/L (3.5-5.1) 09/06/22 10:43 Chloride 87 mmol/L (98-107) L 09/06/22 10:43 Carbon Dioxide 25 mmol/L (22-29) 09/06/22 10:43 Anion Gap 26.5 (5-19) H 09/06/22 10:43 BUN 45 mg/dL (6-20) H 09/06/22 10:43 Creatinine 7.8 mg/dL (0.5-0.9) H* 09/06/22 10:43 GFR Calculation 5.7 mL/min (90-130) L 09/06/22 10:43 Glucose 94 mg/dL (65-115) 09/06/22 10:43 Calculated Osmolality 291 mOsm/kg (285-295) 09/06/22 10:43 Calcium 8.8 mg/dL (8.5-10.5) 09/06/22 10:43 Phosphorus 4.5 mg/dL (2.5-4.5) 09/06/22 10:43 Magnesium 2.3 mg/dL (1.7-2.3) 09/06/22 10:43 Total Bilirubin 0.3 mg/dL (0.15-1.2) 09/06/22 10:43 AST 14 U/L (0-32) 09/06/22 10:43 ALT 7 U/L (0-33) 09/06/22 10:43 Alkaline Phosphatase 146 U/L (35-105) H 09/06/22 10:43 Total Protein 7.8 g/dL (6.6-8.7) 09/06/22 10:43 Albumin 3.9 g/dL (3.5-5.2) 09/06/22 10:43 Globulin 3.9 g/dL (1.3-4.6) 09/06/22 10:43 HCG, Qual Negative (Negative) 09/06/22 10:43 A&P Assessment and plan (1) Small bowel obstruction: Present on admission in a patient without a history of prior obstructions. She has had previous right renal transplant surgery at age 10. She is on chronic narcotics for pain control related to multiple osteoporotic vertebral fractures and other bony abnormalities related to her chronic renal disease. Has had associated constipation, abdominal pain, nausea and vomiting. Surgical consultation NG tube placement, monitoring response N.p.o. Pain control as needed, keeping in mind narcotics can exacerbate obstruction by limiting GI motility, and may be contributing factor to presentation Antiemetics Anxiolytics Check lactic acid level given degree of pain Reviewed with patient and family current plans and potential clinical course for her presentation and gave everyone an opportunity to ask questions (2) ESRD on dialysis: Does home hemodialysis via right upper extremity AV fistula Mondays, Wednesdays and Fridays. Typically takes Benadryl, Zofran, alprazolam and temazepam prior to her dialysis sessions. Chronically on calcitriol, Cinacalcet and sevelame along with renal vitamins. Has ARPKD. Nephrology consultation for dialysis management while in hospital (3) Osteoporosis: Secondary to metabolic/renal bone disease with a history of multiple prior vertebral fractures. On chronic pain control as needed Has been limited in management options due to renal disease. Home oxycodone presently held while npo With resumption when medicallly appropriate, will likely need to adjust chronic laxative/stool softer regimen Plan Dehydration from decreased oral intake Anxiety with as needed alprazolam Cardiomegaly as incidental finding on imaging without history of known cardiac issues Inpatient admission IVFs Monitor volume status and watch blood pressures, has baseline SBP in 90s to low 100s. Check baseline EKG Supportive care otherwise Plans discussed with patient and her as well as parents all whom were in the room and they were given an opportunity to ask questions Anticipate discharge home with outpatient follow-up Full code Attestations Medical Necessity Statement*: Currently anticipate a stay greater than two midnights in this patient presenting with high-grade small bowel obstruction findings on CT imaging, severe abdominal pain several days of symptoms. She has multiple thoracic and lumbar vertebral fractures related to osteoporosis, pain from which is a contributing factor. Overall volume management and symptom control more challenging with comorbid end-stage renal disease on dialysis and low normal range baseline blood pressures. and Moderate Time for a total of 65 minutes, includes reviewing past or interval history, examining/interviewing patient, placing orders, counseling patient/family/other support, discussing plan of care with staff, communicating with other healthcare providers and documenting encounter Diagnoses Small bowel obstruction K56.609 ESRD on dialysis N18.6; Z99.2 Osteoporosis M81.0
[2022-09-06] MEDS: sodium chloride 0.9% 1,000 ML 150 ML IV (15:19)
[2022-09-06] MEDS: morphine 4 mg/mL SDV 1 mL IVP ×2 (15:20→17:17)
[2022-09-06] MEDS: LORazepam 2 mg/mL INJ 1 mL 1 MG IVP ×2 (15:44→16:33)
--- NOTE | 2022-09-06 16:19 | XRR_ITS ---
PROCEDURE INFORMATION: Exam: XR Chest Exam date and time: 09/06/2022 4:55 PM Age: 42 years old Clinical indication: Device placement; Ng tube; Additional info: Ng placement TECHNIQUE: Imaging protocol: Radiologic exam of the chest. Views: 1 view. COMPARISON: CR XR chest 2V* [id number] 03/09/2017 9:00 AM FINDINGS: Tubes, catheters and devices: There is an orogastric tube with tip in the stomach. Lungs: Streaky bibasilar increased density is noted concerning for pneumonitis versus atelectasis. There is poor inspiration compared to the prior exam. Pulmonary vascularity is within normal limits. Pleural spaces: Unremarkable. No pleural effusion. No pneumothorax. Heart/Mediastinum: The heart is enlarged. Bones/joints: No acute abnormality. XR/XR chest 1V portable [id number] IMPRESSION: 1. There is an orogastric tube with tip in the stomach. 2. Streaky bibasilar increased density is noted concerning for pneumonitis versus atelectasis. There is poor inspiration compared to the prior exam.
[2022-09-06] MEDS: methylnaltrexone 12 /0.6 mL INJ 12 MG SUBCUT (16:35)
--- NOTE | 2022-09-06 17:09 | ECG_ITS ---
[facility] Test Date: 2022-09-06 Pat Name: Maricarmen Wilkes Department: Room: 257 Gender: Female Camp Director: : [id number] Requested By: Nida Carey Order Number: [id number] Ambrosio MD: Reed Ritchie M.D. Measurements Intervals [place] Rate: 119 P: 15 ND: 137 QRS: -39 QRSD: 93 T: 17 QT: 438 QTc: 618 Interpretive Statements SINUS TACHYCARDIA LEFT AXIS DEVIATION [QRS AXIS < -30] LOW QRS VOLTAGE IN PRECORDIAL LEADS [QRS DEFLECTION < 1.0 mV IN CHEST LEADS] POSSIBLE ANTERIOR MYOCARDIAL INFARCTION , PROBABLY OLD [30 ms Q WAVE IN V3/V4, OR R < 0.2 mV IN V4] Compared to ECG 10/12/2020 16:39:33 Left-axis deviation now present Low QRS voltage now present Myocardial infarct finding now present Left anterior fascicular block no longer present Electronically Signed On 09-07-2022 17:01:42 CDT by Reed Ritchie M.D. [id number]
--- NOTE | 2022-09-06 17:10 | PM.CONSULT ---
Providers/Reason For Consult Consulting Physician/Specialty*: Dr. Isael Erickson, DO/General surgery Reason for Consult*: Small bowel obstruction Attending Physician: Waqar West MD History of Present Illness History of Present Illness Maricarmen Wilkes is a 42 year old female who presented to the hospital with a 4 to 5-day history of mostly right-sided but also diffuse abdominal pain and nausea and vomiting. She is chronically constipated secondary to chronic opioid use for back pain. She often has to use laxatives. She has not had a decent bowel movement since before her abdominal pain started. She denies any hematochezia and/or melena. She denies any hematemesis. CT of the abdomen pelvis shows a high-grade small bowel obstruction. Review of Systems General: Reports: 10 or more systems reviewed and unremarkable except in HPI and below Medications/Allergies Home Medications Medication Instructions Recorded Confirmed Last Taken Type alprazolam 0.25 mg tablet 0.25 mg PO DAILY PRN Anxiety 09/06/22 09/06/22 Unknown History calcitriol 0.25 mcg capsule 0.75 mcg PO BEDTIME 09/06/22 09/06/22 09/05/22 History cinacalcet 90 mg tablet 180 mg PO BEDTIME 09/06/22 09/06/22 09/05/22 History diphenhydramine HCl 25 mg capsule 75 mg PO BEDTIME 09/06/22 09/06/22 09/05/22 History (Benadryl) docusate sodium 100 mg capsule 200 mg PO BID 09/06/22 09/06/22 09/05/22 History (Stool Softener) megestrol 40 mg tablet 40 mg PO BEDTIME 09/06/22 09/06/22 09/05/22 History ondansetron 4 mg disintegrating 4 mg PO Q8H PRN Nausea And Vomiting 09/06/22 09/06/22 Unknown History tablet oxycodone-acetaminophen 7.5 mg-325 1 - 2 tab PO .EVERY 4-6 HOURS PRN 09/06/22 09/06/22 Unknown History mg tablet Pain sevelamer HCl 800 mg tablet See Rx Instructions .Route .COMPLEX 09/06/22 09/06/22 3 Days Ago History ~09/03/22 temazepam 30 mg capsule 15 mg PO BEDTIME 09/06/22 09/06/22 09/05/22 History see pharmacy comment vit B,C-folic ac 800 mcg-zinc 12.5 1 tab PO DAILY 09/06/22 09/06/22 Unknown History mg-selen-D3 2,000 unit-vit E tablet (RenaPlex-D) vitamin B complex-vitamin C-folic 1 tab PO BEDTIME 09/06/22 09/06/22 09/05/22 History acid 0.8 mg tablet (Viviana-Darrel) Allergies Allergy/AdvReac Type Severity Reaction Status Date / Time gabapentin Allergy ADR/ALGY-Hy Verified 09/06/22 14:07 potension Sulfa (Sulfonamide Allergy ALGY-Hives Verified 09/06/22 14:07 Antibiotics) sulfamethoxazole Allergy Unknown Verified 09/06/22 14:07 [From Bactrim] trimethoprim [From Bactrim] Allergy Unknown Verified 09/06/22 14:07 Current Medications Generic Name Dose Route Start Last Admin Trade Name Freq PRN Reason Stop Dose Admin Sodium Chloride 1,000 mls @ 75 mls/hr 09/06/22 17:47 09/07/22 09:09 Sodium Chloride 0.9% IV Infused .[id number] PRETTY Infusion Lorazepam 0.5 mg 09/06/22 17:47 09/07/22 01:43 Lorazepam 2 Mg/Ml Inj 1 Ml IVP 0.5 mg Q4H PRN Administration ANXIETY Morphine Sulfate 2 mg 09/06/22 17:47 09/07/22 04:55 Morphine 4 Mg/Ml Sdv 1 Ml IVP 2 mg Q4H PRN Administration MODERATE PAIN Pantoprazole Sodium 40 mg 09/06/22 18:30 09/06/22 19:31 Pantoprazole 40 Mg Sdv IVP 40 mg Q24H PRETTY Administration Phenol 3 spray 09/07/22 00:00 09/07/22 00:22 Phenol Oral [employer] 177 Ml MUCOUS MEM 3 spray Q2H PRN Administration SORE THROAT PFSH Acute PFSH: Medical History Autosomal recessive polycystic kidney disease ESRD on dialysis On dialysis since age 19 due to failed renal transplant 1 para 1 History of vertebral fracture multiple thoracic and lumbar fractures from osteoporosis Osteoporosis Surgical History Arteriovenous fistula of right upper extremity History of arthroscopy of right knee History of bilateral hip replacements History of renal transplant right kidney age 10 (father was donor), failed when 19 yo History of surgery on upper extremity Right elbow ligaments Family History Father Diabetes Social History Smoking and tobacco status: never smoked Alcohol intake: never Substance/Drug Use: never Marital status: Vitals/I&O/Wt Last Vital Signs Temp 98.3 F 09/07/22 08:00 Pulse 73 09/07/22 08:00 Resp 16 09/07/22 08:00 BP 108/69 09/07/22 08:00 Pulse Ox 96 09/07/22 08:00 O2 Del Method Room Air 09/07/22 08:00 09/06/22 09/07/22 09/07/22 22:59 06:59 14:59 Intake Total 1000 / 1000 0 / 1000 1000 / 1000 Output Total 150 / 150 Balance 1000 / 1000 -150 / 850 1000 / 1000 Weight last 48 hrs Weight 155 lb Weight 155 lb 6.814 oz Physical Exam Narrative: General : Patient is well developed , no acute distress, oriented x3 Head : Normal cephalic, a-traumatic. Ears : Pinnae and external canal are normal. Hearing is normal. Eyes : PERRLA, Sclera and injection are normal. No conjunctival discharge. Nose : Mucous membranes are without erythema. Throat : buccal mucosa is normal, gums are without significant recession or hypertrophy. Lungs : Equal chest rise bilaterally, no use of accessory muscles, trachea is midline. Cor : Rate and rhythm are normal. Abdomen : Soft, marked distention with diffuse tenderness, no g/r/m Extremities : No edema, no cyanosis or clubbing, dorsalis pedis pulses are present bilaterally, non-tender to palpation of calves. Upper extremities are normal bilaterally. Back : non-tender to palpation, no CVA tenderness. Neuro : CN II - XII intact, Upper and lower extremities have equal and full strength Data 09/07/22 04:11 09/07/22 04:11 A&P Assessment and plan (1) Small bowel obstruction: (2) Therapeutic opioid-induced constipation (OIC): Plan IV fluids-she is a dialysis patient and is scheduled to get dialysis tonight NGT to [facility] Conservative management for now. If she deteriorates or does not improve over the next few days she may need a diagnostic laparoscopy versus exploratory laparotomy Medical management per primary Coding Level of Care Code Acute Code for Chg Fwd Diagnoses Small bowel obstruction K56.609 Therapeutic opioid-induced constipation (OIC) K59.03; T40.2X5A
[2022-09-06 17:33] LABS: Lactic Sepsis W/Reflex 1.1 mmol/L (0.5-2.2)
[2022-09-06] MEDS: sodium chloride 0.9% 1,000 ML 75 ML IV (19:31)
[2022-09-06] MEDS: pantoprazole 40 mg SDV IVP (19:31)
[2022-09-06] MEDS: LORazepam 2 mg/mL INJ 1 mL 0.5 MG IVP (20:44)
--- NOTE | 2022-09-06 21:33 | P.CONIM_ITS ---
Providers/Reason For Consult Consulting Physician/Specialty*: chelle Reason for Consult*: esrd Attending Physician: Nida Carey MD History of Present Illness History of Present Illness Maricarmen Wilkes is a 42 year old female Patient is a 42-year-old female with past medical history of hypertension, end-stage renal disease on hemodialysis, osteoporosis, history of polycystic kidney disease presented to the emergency department complaining of abdominal pain decreased appetite. She also has a history of prior renal transplant that worked about [address] scan of abdomen showed possible small bowel obstruction. General surgery is on board. . Medications/Allergies Home Medications Medication Instructions Recorded Confirmed Last Taken Type alprazolam 0.25 mg tablet 0.25 mg PO DAILY PRN Anxiety 09/06/22 09/06/22 Unknown History calcitriol 0.25 mcg capsule 0.75 mcg PO BEDTIME 09/06/22 09/06/22 09/05/22 History cinacalcet 90 mg tablet 180 mg PO BEDTIME 09/06/22 09/06/22 09/05/22 History diphenhydramine HCl 25 mg capsule 75 mg PO BEDTIME 09/06/22 09/06/22 09/05/22 History (Benadryl) docusate sodium 100 mg capsule 200 mg PO BID 09/06/22 09/06/22 09/05/22 History (Stool Softener) megestrol 40 mg tablet 40 mg PO BEDTIME 09/06/22 09/06/22 09/05/22 History ondansetron 4 mg disintegrating 4 mg PO Q8H PRN Nausea And Vomiting 09/06/22 09/06/22 Unknown History tablet oxycodone-acetaminophen 7.5 mg-325 1 - 2 tab PO .EVERY 4-6 HOURS PRN 09/06/22 09/06/22 Unknown History mg tablet Pain sevelamer HCl 800 mg tablet See Rx Instructions .Route .COMPLEX 09/06/22 09/06/22 3 Days Ago History ~09/03/22 temazepam 30 mg capsule 15 mg PO BEDTIME 09/06/22 09/06/22 09/05/22 History see pharmacy comment vit B,C-folic ac 800 mcg-zinc 12.5 1 tab PO DAILY 09/06/22 09/06/22 Unknown History mg-selen-D3 2,000 unit-vit E tablet (RenaPlex-D) vitamin B complex-vitamin C-folic 1 tab PO BEDTIME 09/06/22 09/06/22 09/05/22 History acid 0.8 mg tablet (Viviana-Darrel) Allergies Allergy/AdvReac Type Severity Reaction Status Date / Time gabapentin Allergy ADR/ALGY-Hy Verified 09/06/22 14:07 potension Sulfa (Sulfonamide Allergy ALGY-Hives Verified 09/06/22 14:07 Antibiotics) sulfamethoxazole Allergy Unknown Verified 09/06/22 14:07 [From Bactrim] trimethoprim [From Bactrim] Allergy Unknown Verified 09/06/22 14:07 Current Medications Generic Name Dose Route Start Last Admin Trade Name Freq PRN Reason Stop Dose Admin Sodium Chloride 1,000 mls @ 75 mls/hr 09/06/22 17:47 09/06/22 19:31 Sodium Chloride 0.9% IV 75 mls/hr .[id number] PRETTY Administration Lorazepam 0.5 mg 09/06/22 17:47 09/06/22 20:44 Lorazepam 2 Mg/Ml Inj 1 Ml IVP 0.5 mg Q4H PRN Administration ANXIETY Pantoprazole Sodium 40 mg 09/06/22 18:30 09/06/22 19:31 Pantoprazole 40 Mg Sdv IVP 40 mg Q24H PRETTY Administration PFSH Acute PFSH: Medical History (Updated 09/06/22 @ 17:21 by Nida Carey MD) Autosomal recessive polycystic kidney disease ESRD on dialysis On dialysis since age 19 due to failed renal transplant 1 para 1 History of vertebral fracture multiple thoracic and lumbar fractures from osteoporosis Osteoporosis Surgical History (Updated 09/06/22 @ 17:07 by Nida Carey MD) Arteriovenous fistula of right upper extremity History of arthroscopy of right knee History of bilateral hip replacements History of renal transplant right kidney age 10 (father was donor), failed when 19 yo History of surgery on upper extremity Right elbow ligaments Family History (Updated 09/06/22 @ 15:31 by Nida Carey MD) Father Diabetes Social History (Updated 09/06/22 @ 15:54 by Nida Carey MD) Smoking and tobacco status: never smoked Alcohol intake: never Substance/Drug Use: never Marital status: Vitals/I&O/Wt Last Vital Signs Temp 98.7 F 09/06/22 20:00 Pulse 115 H 09/06/22 20:00 Resp 16 09/06/22 20:00 BP 101/62 09/06/22 20:00 Pulse Ox 91 09/06/22 20:00 O2 Del Method Room Air 09/06/22 17:22 09/06/22 09/06/22 09/06/22 06:59 14:59 22:59 Intake Total 1000 / 1000 Balance 1000 / 1000 Weight last 48 hrs Weight 70.307 kg Weight 70.5 kg Physical Exam Narrative: sleeping , no distress S1 S2 RR per report lungs clear bella per report no edema Data 09/06/22 10:43 09/06/22 10:43 A&P Assessment and plan (1) ESRD on dialysis: Plan 1. End-stage renal disease: On home hemodialysis, per [facility] schedule. I will plan on dialysis tomorrow. 2. History of hypertension: Blood pressure on the low side, monitor 3. Small bowel obstruction, management per the general surgery, patient is n.p.o. Patient evaluated using audiovisual cart. Time spent 45 minutes Consult Attestations Medical Necessity Statement: per medicine Coding Level of Care Code Acute Code for Chg Fwd Diagnoses ESRD on dialysis N18.6; Z99.2
[2022-09-07] VITALS (12 sets, daily range): BP systolic 87–115; BP diastolic 52–72; PULSE 73–117; RESP 16–18; TEMP 36.4–37.4; O2SAT 93–96
[2022-09-07] MEDS: morphine 4 mg/mL SDV 1 mL 2 MG IVP ×2 (00:22→04:55)
[2022-09-07] MEDS: phenol oral Spray 177 mL 3 SPRAY MUCOUS MEM (00:22)
[2022-09-07] MEDS: LORazepam 2 mg/mL INJ 1 mL 0.5 MG IVP ×3 (01:43→18:27)
[2022-09-07 04:52] LABS: Basophils % 0.6 %; Eosinophils # 0.2 10^3/uL (0.0-0.8); Eosinophils % 2.6 %; Hematocrit 37.3 % (37.0-47.0); Hemoglobin 11.6 g/dL (11.5-15.3); Lymphocytes # 1.3 10^3/uL (0.8-4.8); Mean Corpuscular HGB Conc 31.1 g/dL (30.0-36.0); Mean Corpuscular Hemoglobin 26.9 pg (28.0-34.0); Mean Corpuscular Volume 86.5 fl (81-99); Mean Platelet Volume 9.4 fL (7.4-10.4); Monocytes # 0.8 10^3/uL (0.2-0.9); Neutrophils # 4.56 10^3/uL (1.8-7.7); Neutrophils % 65.7 %; Nucleated Red Blood Cells % 0 %; Platelet Count 255 10^3/cmm (130-400); Red Blood Count 4.31 10^6/uL (4.1-5.3); White Blood Count 6.9 10^3/uL (4.0-10.0)
[2022-09-07 05:04] LABS: INR 1.41 (0.8-1.2)
[2022-09-07 05:05] LABS: Partial Thromboplastin Time 44.3 SECONDS (23.9-36.7)
[2022-09-07 05:12] LABS: Lactate (Lactic Acid level) 0.7 mmol/L (0.5-2.2)
[2022-09-07 05:16] LABS: Blood Urea Nitrogen 50 mg/dL (6-20); Carbon Dioxide 18 mmol/L (22-29); Chloride 90 mmol/L (98-107); Glomerular Filtration Rate 5.1 mL/min (90-130); Glucose 64 mg/dL (65-115); Magnesium 2.4 mg/dL (1.7-2.3); Osmolality Calculated 295 mOsm/kg (285-295); Phosphorus 5.9 mg/dL (2.5-4.5); Sodium 137 mmol/L (136-145)
[2022-09-07 05:20] LABS: Anion Gap 32.8 (5-19); Potassium 3.8 mmol/L (3.5-5.1)
[2022-09-07 09:03] LABS: Hepatitis B Core AB, Total Non-Reactive (Nonreactive); Hepatitis B Surface AB 398.6 (11.5-1000); Hepatitis B Surface Antigen Non-Reactive (Nonreactive)
--- NOTE | 2022-09-07 09:45 | PC.CHAP ---
Pastoral Care Encounter/Spiritual Assessment Type of Contact [] Declined education department chair visit [] Patient/Family/Request visit [] Outpatient visit [] Follow-up visit [] Physician referral [] Code/Alert [] Routine visit [] Staff referral [] Actively dying [x] Patient sleeping [] Family support [] [] Out of room [] Palliative care [] [] Receiving care in room [] Pre-surgical visit [] Trauma [] Long length of stay [] ICU visit [] Other: Relational/Emotional Strength [] Patient feels connected with others/family/visitors/staff [] Distress [] Loneliness/isolation [] Abandonment Spirituality of Patient [] Person of Gabriela [] Attends Religious of their Gabriela [] Believes in Prayer [] Reads Bible or Latter Day materials [] There are Spiritual issues to be addressed [employer] Interventions [] Prayer [] Active listening [] Non-anxious presence [] Spiritual/emotional support [] Crisis/trauma care [] Spiritual counseling [] Bereavement support [] Provided bereavement packet [] Provided Bible/devotional materials [] Provided toy/stuffed animal, coloring book to patient or family member [] Provided Communion [] Anointing/[place] [] Salvation [] Completed spiritual assessment [] Other: Impact on Illness or Injury [] Angry [] Fearful [] Anxious [] Often cries [] Exhaustion [] Unable to work [] Unable to attend episcopal [] Unable to walk/stand [] Unable to read [] Unable to drive [] Unable to eat/drink [] Unable to sleep [] Unable to be with family [] Patient intubated [] Other: Summary Time spent with patient
--- NOTE | 2022-09-07 10:37 | P.PN_ITS ---
Subjective Subjective: remains NPO Medications: Reviewed: Yes Vitals/I&O/Wt Last Vital Signs Temp 98.3 F 09/07/22 08:00 Pulse 73 09/07/22 08:00 Resp 16 09/07/22 08:00 BP 108/69 09/07/22 08:00 Pulse Ox 96 09/07/22 08:00 O2 Del Method Room Air 09/07/22 08:00 09/06/22 09/07/22 09/07/22 22:59 06:59 14:59 Intake Total 1000 / 1000 0 / 1000 1000 / 1000 Output Total 150 / 150 Balance 1000 / 1000 -150 / 850 1000 / 1000 Weight last 48 hrs Weight 70.307 kg Weight 70.5 kg Physical Exam Narrative: sleeping , no distress S1 S2 RR per report lungs clear bella per report no edema Data 09/07/22 04:11 09/07/22 04:11 A&P Assessment and plan (1) ESRD on dialysis: Plan 1. End-stage renal disease: On home hemodialysis, per [facility] schedule. Dialysis today 2. History of hypertension: Blood pressure on the low side, monitor 3. Small bowel obstruction, management per the general surgery, patient is n.p.o. Patient evaluated using audiovisual cart. Time spent 45 minutes Attestations Medical Necessity Statement*: per medicine Coding Level of Care Code Acute Code for Chg Fwd Diagnoses ESRD on dialysis N18.6; Z99.2
[2022-09-07] MEDS: ondansetron 2 mg/ML SDV 2 mL 4 MG IVP ×2 (10:50→18:08)
--- NOTE | 2022-09-07 12:47 | PC.NUTR ---
Consult for PPN received. Recommend PPN with MV 10 mls/day, fat emulsion 25 gr/125 mls and standard electrolytes per following schedule: Beginning @ 12 ml/hr for 8 hrs (25% goal rate) Increasing to 26 mls/hr for 8 hrs (50% goal rate) Increasing to 32 mls/hr for 8 hrs (75% goal rate) Increasing to 42 mls/hr, goal rate for Pt. Details in RD assessment.
--- NOTE | 2022-09-07 12:49 | PM.PN ---
Subjective Subjective: This morning patient was complaining of sore throat No active Dillan pain at the time of evaluation Patient is stating that morphine is not helping her with abdominal pain I did try to explain opiate-induced constipation and chance of worsening with Dilaudid She also wanted some anxiolytics before dialysis I told the nurse that this combination might not be very good at this point Patient has not eaten in the last 4 days Asked dietitian for PPN Vitals/I&O/Wt Last Vital Signs Temp 98.3 F 09/07/22 08:00 Pulse 73 09/07/22 11:19 Resp 16 09/07/22 08:00 BP 108/69 09/07/22 08:00 Pulse Ox 96 09/07/22 11:19 O2 Del Method Room Air 09/07/22 11:19 09/06/22 09/07/22 09/07/22 22:59 06:59 14:59 Intake Total 1000 / 1000 0 / 1000 1000 / 1000 Output Total 150 / 150 Balance 1000 / 1000 -150 / 850 1000 / 1000 Weight last 48 hrs Weight 70.307 kg Weight 70.5 kg Physical Exam Narrative: 150 mL in the container from NG tube Abdomen distended, tenderness on deep palpation only Bowel sounds sluggish Currently on room air Awake and alert GCS 15 Hemodynamically stable is at the bedside Right arm AV fistula GCS 15 Nonfocal neuro exam Data 09/07/22 04:11 09/07/22 04:11 A&P Assessment and plan (1) Therapeutic opioid-induced constipation (OIC): (2) ESRD on dialysis: (3) Small bowel obstruction: (4) Osteoporosis: (5) Constipation: Plan Opioid-induced constipation We will give her methylnaltrexone 1 dose and monitor her bowel movement and passage of flatus Patient has not eaten in last 4 days start PPN dietitian consulted [facility] severe constipation Appreciate general surgery recommendations Conservative management NG to low intermittent suction For opioids and reluctant to use Dilaudid at this point I would like to keep her on morphine, at home she has been using oxycodone Mary renal disease Tuesday hemodialysis dependent right arm AV fistula Hemodialysis session today Full code N.p.o. Conservative management Attestations Medical Necessity Statement*: Continue medical management Diagnoses Therapeutic opioid-induced constipation (OIC) K59.03; T40.2X5A ESRD on dialysis N18.6; Z99.2 Small bowel obstruction K56.609 Osteoporosis M81.0 Constipation K59.00
[2022-09-07] MEDS: HYDROmorphone 1 mg/mL INJ 1 mL 0.2 MG IVP ×3 (13:22→21:25)
[2022-09-07] MEDS: diphenhydrAMINE 50 mg/mL SDV 1mL 25 MG IVP (13:22)
[2022-09-07] MEDS: albumin 12.5 GM/50 ML VIAL IV ×2 (14:00→19:28)
[2022-09-07] MEDS: methylnaltrexone 12 /0.6 mL INJ 12 MG SUBCUT (16:21)
--- NOTE | 2022-09-07 18:04 | PC.HD ---
Pt does home hemodialysis, is caregiver. cannulated fistula pre-treatment and deaccessed post treatment per pt request. Pt hypotensive prior to treatment, machine temp decreased to 35.0 and albumin hung shortly after treatment started for BP support, but pt had asymptomatic hypotension, then developed cramping, so unable to reach fluid removal goal. Dr Doug mayfield.
[2022-09-07] MEDS: pantoprazole 40 mg SDV IVP (18:07)
--- NOTE | 2022-09-07 18:48 | PM.PN ---
Subjective Subjective: Patient seen and examined. She reports that she has passed a little bit of flatus. Reports that her pain has improved Vitals/I&O/Wt Last Vital Signs Temp 97.9 F 09/07/22 17:49 Pulse 104 H 09/07/22 17:49 Resp 16 09/07/22 18:08 BP 111/69 09/07/22 17:49 Pulse Ox 95 09/07/22 16:00 O2 Del Method Room Air 09/07/22 16:00 09/07/22 09/07/22 09/07/22 06:59 14:59 22:59 Intake Total 0 / 1000 1000 / 1000 600 / 1600 Output Total 150 / 150 1707 / 1707 Balance -150 / 850 1000 / 1000 -1107 / -107 Weight last 48 hrs Weight 161 lb 13.109 oz Weight 155 lb Weight 155 lb 6.814 oz Physical Exam Narrative: General: Mild pain distress, awake alert 90x3 Abdomen: Soft, distended, mild diffuse tenderness, no guarding rebound or masses Data 09/07/22 04:11 09/07/22 04:11 A&P Assessment and plan (1) Small bowel obstruction: (2) Therapeutic opioid-induced constipation (OIC): Plan NGT to [facility] Agree with PPN Conservative management for now. If she deteriorates or does not improve over the next few days she may need a diagnostic laparoscopy versus exploratory laparotomy Medical management per primary Attestations Medical Necessity Statement*: Per hospitalist Coding Level of Care Code Acute Code for Chg Fwd Diagnoses Small bowel obstruction K56.609 Therapeutic opioid-induced constipation (OIC) K59.03; T40.2X5A
--- NOTE | 2022-09-07 19:21 | PC.NURSE ---
Started PPN at 1630 on 09/07/22 at 12ml/hr.
[2022-09-08] VITALS (11 sets, daily range): BP systolic 73–96; BP diastolic 51–66; PULSE 82–120; RESP 16–20; TEMP 36.4–37.4; O2SAT 90–95
[2022-09-08] MEDS: LORazepam 2 mg/mL INJ 1 mL 0.5 MG IVP ×3 (01:13→22:33)
[2022-09-08 01:46] LABS: Basophils % 0.5 %; Eosinophils # 0.1 10^3/uL (0.0-0.8); Eosinophils % 0.9 %; Hematocrit 38.8 % (37.0-47.0); Hemoglobin 11.9 g/dL (11.5-15.3); Lymphocytes % 13.1 %; Mean Corpuscular HGB Conc 30.7 g/dL (30.0-36.0); Mean Corpuscular Hemoglobin 26.7 pg (28.0-34.0); Mean Corpuscular Volume 87.2 fl (81-99); Mean Platelet Volume 9.3 fL (7.4-10.4); Monocytes # 0.9 10^3/uL (0.2-0.9); Neutrophils # 5.73 10^3/uL (1.8-7.7); Neutrophils % 73.1 %; Nucleated Red Blood Cells % 0 %; Platelet Count 289 10^3/cmm (130-400); Red Blood Count 4.45 10^6/uL (4.1-5.3); Red Cell Distribution Width 16.2 % (12.1-15.1); White Blood Count 7.8 10^3/uL (4.0-10.0)
[2022-09-08 02:02] LABS: Magnesium 2.2 mg/dL (1.7-2.3)
[2022-09-08 02:21] LABS: Anion Gap 32.3 (5-19); Blood Urea Nitrogen 21 mg/dL (6-20); Calcium 9.9 mg/dL (8.5-10.5); Carbon Dioxide 21 mmol/L (22-29); Chloride 89 mmol/L (98-107); Creatinine Clr Calc Pharmacy 17.5074; Glomerular Filtration Rate 9.8 mL/min (90-130); Glucose 91 mg/dL (65-115); Osmolality Calculated 291 mOsm/kg (285-295); Potassium 3.3 mmol/L (3.5-5.1); Sodium 139 mmol/L (136-145)
[2022-09-08] MEDS: ondansetron 2 mg/ML SDV 2 mL 4 MG IVP ×2 (03:21→18:05)
[2022-09-08] MEDS: HYDROmorphone 1 mg/mL INJ 1 mL 0.2 MG IVP ×3 (03:22→13:10)
--- NOTE | 2022-09-08 07:00 | XRR_ITS ---
PROCEDURE INFORMATION: Exam: XR Abdomen Exam date and time: 09/08/2022 6:01 AM Age: 42 years old Clinical indication: Other: Sbo; Prior surgery; Surgery date: 6+ months; Surgery type: Kidney transplant nil hip TECHNIQUE: Imaging protocol: Radiologic exam of the abdomen. Views: Frontal supine view of the abdomen. 1 View. COMPARISON: CT abdomen pelvis con [id number] 09/06/2022 12:27 PM FINDINGS: Tubes, catheters and devices: The nasogastric tube is appropriately positioned with the tip in the stomach, well beyond the diaphragmatic hiatus. Gastrointestinal tract: There is a paucity of bowel gas. A single gas distended bowel loop in the midline lower abdomen could be small bowel colon. 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 There are bilateral hip prostheses with abnormal rotation of the acetabular components and superior subluxation of the left femoral head. XR/XR KUB portable [id number] IMPRESSION: 1. Satisfactory NG tube position. 2. Minimal bowel gas. There is a distended central lower abdominal bowel loop which could be small bowel or colon.
[2022-09-08] MEDS: morphine 4 mg/mL SDV 1 mL 2 MG IVP ×2 (09:11→21:14)
--- NOTE | 2022-09-08 09:41 | P.PN_ITS ---
Subjective Subjective: still NPO Medications: Reviewed: Yes Vitals/I&O/Wt Last Vital Signs Temp 99.2 F 09/08/22 07:58 Pulse 111 H 09/08/22 07:58 Resp 16 09/08/22 09:11 BP 96/66 09/08/22 07:58 Pulse Ox 94 09/08/22 07:58 O2 Del Method Room Air 09/08/22 07:58 09/07/22 09/08/22 09/08/22 22:59 06:59 14:59 Intake Total 650 / 1700 221 / 1921 Output Total 1707 / 1707 400 / 400 Balance -1057 / -7 221 / 214 -400 / -400 Weight last 48 hrs Weight 73.4 kg Weight 70.307 kg Weight 70.5 kg Data 09/08/22 01:23 09/08/22 01:23 A&P Assessment and plan (1) ESRD on dialysis: Plan 1. End-stage renal disease: On home hemodialysis, per [facility] schedule. Dialysis YESTERDAY , next hD in [place] 2. History of hypertension: Blood pressure on the low side, monitor 3. Small bowel obstruction, management per the general surgery, patient is n.p.o. Patient evaluated using audiovisual cart. Time spent 45 minutes Attestations Medical Necessity Statement*: PER MEDICINE Coding Level of Care Code Acute Code for Chg Fwd Diagnoses ESRD on dialysis N18.6; Z99.2
--- NOTE | 2022-09-08 13:29 | PM.PN ---
Subjective Subjective: This morning patient is stating that she has had 4 bowel movements NG tube with coffee-ground content noted Hemoglobin stable Pressure slightly soft NG tube removed Dr. Erickson notified Abdomen is nontender We will stop PPN, start clear liquid Vitals/I&O/Wt Last Vital Signs Temp 98.8 F 09/08/22 11:43 Pulse 118 H 09/08/22 11:43 Resp 16 09/08/22 13:10 BP 73/51 09/08/22 11:43 Pulse Ox 90 09/08/22 11:43 O2 Del Method Room Air 09/08/22 11:43 09/07/22 09/08/22 09/08/22 22:59 06:59 14:59 Intake Total 650 / 1700 221 / 1921 Output Total 1707 / 1707 400 / 400 Balance -1057 / -7 221 / 214 -400 / -400 Weight last 48 hrs Weight 73.4 kg Weight 70.307 kg Physical Exam Narrative: Abdomen soft Bowel sound present Awake and alert Nontender abdomen no signs of peritonitis NG tube with blood content Awake and alert at the bedside Right arm fistula in place Lower extremity no significant swelling Data 09/08/22 01:23 09/08/22 01:23 A&P Assessment and plan (1) Therapeutic opioid-induced constipation (OIC): (2) ESRD on dialysis: (3) Small bowel obstruction: (4) Osteoporosis: (5) Constipation: Plan Opioid-induced constipation Patient received 2 doses of methylnaltrexone 4 bowel movements as per the patient Remove NG tube Start clear liquids Stop PPN Hemodialysis dependent Tuesday Appreciate nephro recommendations Disposition plan: If patient keeps tolerating her diet no vomiting, she is passing gas and multiple bowel movements, we might be able to discharge her in next 24 to 48 hours Opioid dependent: No active signs of withdrawal I will switch her Dilaudid back to morphine Full code Clear liquid diet Hold DVT prophylaxis because of blood noted in the NG tube Attestations Medical Necessity Statement*: Discharge in next 24 hours Diagnoses Therapeutic opioid-induced constipation (OIC) K59.03; T40.2X5A ESRD on dialysis N18.6; Z99.2 Small bowel obstruction K56.609 Osteoporosis M81.0 Constipation K59.00
[2022-09-08] MEDS: pantoprazole 40 mg SDV IVP (14:25)
--- NOTE | 2022-09-08 14:56 | PC.NURSE ---
1000 - NG tube bloody and pt reports pain. Stopped suction. Notified physician. NG tube out.
--- NOTE | 2022-09-08 18:39 | PM.PN ---
Subjective Subjective: Patient seen and examined. She had 2 bowel movements this morning. Now tolerating clear liquids but still nauseous. Pain improved Vitals/I&O/Wt Last Vital Signs Temp 99.3 F 09/08/22 16:00 Pulse 82 09/08/22 16:00 Resp 16 09/08/22 16:00 BP 87/58 09/08/22 16:00 Pulse Ox 92 09/08/22 16:00 O2 Del Method Room Air 09/08/22 16:00 09/08/22 09/08/22 09/08/22 06:59 14:59 22:59 Intake Total 221 / 1921 379.6 / 379.6 Output Total 400 / 400 Balance 221 / 214 -20.4 / -20.4 Weight last 48 hrs Weight 161 lb 13.109 oz Physical Exam Narrative: General: Mild pain distress, awake alert 90x3 Abdomen: Soft, distended, mild diffuse tenderness, no guarding rebound or masses Data 09/08/22 01:23 09/08/22 01:23 A&P Assessment and plan (1) Small bowel obstruction: (2) Therapeutic opioid-induced constipation (OIC): Plan NGT to [facility] Agree with PPN Conservative management for now. If she deteriorates or does not improve over the next few days she may need a diagnostic laparoscopy versus exploratory laparotomy Medical management per primary Attestations Medical Necessity Statement*: Per primary Coding Level of Care Code Acute Code for Chg Fwd Diagnoses Small bowel obstruction K56.609 Therapeutic opioid-induced constipation (OIC) K59.03; T40.2X5A
[2022-09-09] VITALS: BP 100/70; PULSE 114; RESP 17; TEMP 36.4; O2SAT 94
[2022-09-09] MEDS: pantoprazole 40 mg SDV IVP (02:42)
[2022-09-09 04:00] VITALS: BP 100/53; PULSE 110; RESP 16; TEMP 37.2; O2SAT 95
[2022-09-09 08:00] VITALS: BP 80/52; PULSE 119; RESP 17; TEMP 37.1; O2SAT 95
[2022-09-09 08:31] VITALS: RESP 18
[2022-09-09] MEDS: morphine 4 mg/mL SDV 1 mL 2 MG IVP (08:31)
--- NOTE | 2022-09-09 10:17 | PM.DCS ---
Discharge Providers Date of Admission: 09/06/22 15:43 Date of Discharge: September 09, 2022 Attending Provider at Admission: Nida Carey MD Attending Provider at Discharge: Waqar West MD Diagnoses at Discharge Discharge Diagnosis (1) Small bowel obstruction: Status: Acute (2) Therapeutic opioid-induced constipation (OIC): Status: Acute Reason for Visit Reason for Visit: abd pain 4xdays Hospital Course Hospital Course 42-year-old female enters renal disease Tuesday hemodialysis dependent, has right arm fistula, manages dialysis at home, present to the hospital for opiate-induced constipation, patient has been taking opioids for her back pain, she was managed conservatively, she was given methylnaltrexone 2 doses which improved her symptoms, NG tube was taken out, patient had more than 5 bowel movement, abdominal exam was benign, she is tolerating clear liquid diet which has been advanced to full liquids at the time of discharge, patient will be discharged home with lactulose and senna S, I did psychosocial rehabilitation counselor her regarding opioid-induced constipation and how we can prevent it in future, she was not taking any significant laxatives at home with opioids. Please see general surgery consultation notes for further details Physical Exam Narrative: Awake and alert GCS 15 Abdomen soft Right arm fistula Currently on room air Pleasant and cooperative GCS 15 Discharge Data Studies Completed and Pending Completed Studies During Hospitalization Category Date Time Status CT abdomen pelvis wo con [id number] Stat Cat Scan 09/06/22 12:13 Completed XR KUB portable [id number] Routine Exams 09/08/22 07:00 Completed XR chest 1V portable [id number] Stat Exams 09/06/22 16:19 Completed Radiology Impressions Abdomen/Pelvis CT 09/06/22 12:13 IMPRESSION: 1. High-grade mid to distal small bowel obstruction. Site of transition is not apparent. No pneumatosis or free air at this time. 2. RIGHT colon constipation. 3. Severe renal atrophy. 4. Biconcave lower thoracic and lumbar vertebral body fractures. 5. Cardiomegaly. Chest X-Ray 09/06/22 16:19 IMPRESSION: 1. There is an orogastric tube with tip in the stomach. 2. Streaky bibasilar increased density is noted concerning for pneumonitis versus atelectasis. There is poor inspiration compared to the prior exam. KUB X-Ray 09/08/22 07:00 IMPRESSION: 1. Satisfactory NG tube position. 2. Minimal bowel gas. There is a distended central lower abdominal bowel loop which could be small bowel or colon. Laboratory Results WBC 7.8 10^3/uL (4.0-10.0) 09/08/22 01: RBC 4.45 10^6/uL (4.1-5.3) 09/08/22 01: Hgb 11.9 g/dL (11.5-15.3) 09/08/22 01: Hct 38.8 % (37.0-47.0) 09/08/22: MCV 87.2 fl (81-99) 09/08/22: MCH 26.7 pg (28.0-34.0) L 09/08/22: MCHC 30.7 g/dL (30.0-36.0) 09/08/22: RDW 16.2 % (12.1-15.1) H 09/08/22: Plt Count 289 10^3/cmm (130-400) 09/08/22 01: MPV 9.3 fL (7.4-10.4) 09/08/22 01: Neut % (Auto) 73.1 % 09/08/22 01: Lymph % (Auto) 13.1 % 09/08/22: [place] % (Auto) 12.0 % 09/08/22: Eos % (Auto) 0.9 % 09/08/22: Baso % (Auto) 0.5 % 09/08/22: Neut # (Auto) 5.73 10^3/uL (1.8-7.7) 09/08/22 01: Lymph # (Auto) 1.0 10^3/uL (0.8-4.8) 09/08/22: [place] # (Auto) 0.9 10^3/uL (0.2-0.9) 09/08/22 01: Eos # (Auto) 0.1 10^3/uL (0.0-0.8) 09/08/22 01: Baso # (Auto) 0.0 10^3/uL (0.0-0.1) 09/08/22 01:23 Nucleated RBC % (auto) 0 % 09/08/22 01:23 Nucleated RBCs # 0.0 /100WBC 09/08/22 01:23 PT 17.80 SECONDS (12.1-14.9) H 09/07/22 04:11 INR 1.41 (0.8-1.2) H 09/07/22 04:11 APTT 44.3 SECONDS (23.9-36.7) H 09/07/22 04:11 Sodium 139 mmol/L (136-145) 09/08/22 01:23 Potassium 3.3 mmol/L (3.5-5.1) L 09/08/22 01:23 Chloride 89 mmol/L (98-107) L 09/08/22 01:23 Carbon Dioxide 21 mmol/L (22-29) L 09/08/22 01:23 Anion Gap 32.3 (5-19) H 09/08/22 01:23 BUN 21 mg/dL (6-20) H 09/08/22 01:23 Creatinine 4.9 mg/dL (0.5-0.9) H 09/08/22 01:23 GFR Calculation 9.8 mL/min (90-130) L 09/08/22 01:23 Glucose 91 mg/dL (65-115) 09/08/22 01:23 Calculated Osmolality 291 mOsm/kg (285-295) 09/08/22 01:23 Lactic Acid 1.1 mmol/L (0.5-2.2) 09/06/22 16:53 Lactate 0.7 mmol/L (0.5-2.2) 09/07/22 04:11 Calcium 9.9 mg/dL (8.5-10.5) 09/08/22 01:23 Phosphorus 5.9 mg/dL (2.5-4.5) H 09/07/22 04:11 Magnesium 2.2 mg/dL (1.7-2.3) 09/08/22 01:23 Total Bilirubin 0.3 mg/dL (0.15-1.2) 09/06/22 10:43 AST 14 U/L (0-32) 09/06/22 10:43 ALT 7 U/L (0-33) 09/06/22 10:43 Alkaline Phosphatase 146 U/L (35-105) H 09/06/22 10:43 Total Protein 7.8 g/dL (6.6-8.7) 09/06/22 10:43 Albumin 3.9 g/dL (3.5-5.2) 09/06/22 10:43 Globulin 3.9 g/dL (1.3-4.6) 09/06/22 10:43 HCG, Qual Negative (Negative) 09/06/22 10:43 Hep Bs Antigen Non-reactive (Nonreactive) 09/07/22 04:11 Hep Bs Antibody 398.6 (11.5-1000) 09/07/22 04:11 Hep B Core Total Ab Non-reactive (Nonreactive) 09/07/22 04:11 Vitals Last Vital Signs Temp 98.7 F 09/09/22 08:00 Pulse 119 H 09/09/22 08:00 Resp 18 09/09/22 08:31 BP 80/52 09/09/22 08:00 Pulse Ox 95 09/09/22 08:00 O2 Del Method Room Air 09/09/22 08:00 Discharge Plan Discharge Patient Disposition: Home Condition: Stable Prescriptions: New lactulose 20 gram/30 mL solution 20 g PO DAILY PRN (Reason: constipation) Qty: 1200 0RF sennosides-docusate sodium [Senna-S] 8.6-50 mg tablet 1 tab-cap PO DAILY Qty: 60 0RF Continued sevelamer HCl 800 mg tablet See Rx Instructions .ROUTE .COMPLEX Rx Instructions: TAKE 4 TABLETS BY MOUTH THREE TIMES DAILY WITH MEALS & TAKE 1 TABLET WITH SNACK alprazolam 0.25 mg tablet 0.25 mg PO DAILY PRN (Reason: Anxiety) temazepam 30 mg capsule 15 mg PO BEDTIME Benadryl 25 mg Capsule 75 mg PO BEDTIME megestrol 40 mg tablet 40 mg PO BEDTIME Stool Softener 100 mg Capsule 200 mg PO BID Viviana-Darrel 0.8 mg Tablet 1 tab PO BEDTIME oxycodone-acetaminophen 7.5-325 mg tablet 1 - 2 tab PO .EVERY 4-6 HOURS MDD 6 tabs PRN (Reason: Pain) ondansetron 4 mg tablet,disintegrating 4 mg PO Q8H PRN (Reason: Nausea And Vomiting) calcitriol 0.25 mcg capsule 0.75 mcg PO BEDTIME cinacalcet 90 mg tablet 180 mg PO BEDTIME RenaPlex-D 800 mcg-12.5 mg -2,000 unit tablet 1 tab PO DAILY Discharge Orders: Discharge Order (Routine); Ordered 09/09/22 Ordered By: Waqar West Discharge Diet: Cardiac Discharge Activity: Increase activity as tolerated Patient Instructions: Laxative, Stool Softeners (By mouth), Lactulose (By mouth), Opioid Safety Discharge Attestations Time Spent in Discharge Care*: greater than 30 min Quality Metrics Clinical Quality Measures [ No reported AMI, CVA or VTE this stay] Coding Level of Care Code Acute Code for Chg Fwd Diagnoses Small bowel obstruction K56.609 Therapeutic opioid-induced constipation (OIC) K59.03; T40.2X5A
--- NOTE | 2022-09-09 10:43 | PC.NURSE ---
THIS NURSE ASKED PATIENT IF SHE HAD A PRIMARY CARE PROVIDER. PATIENT REPLIED SHE DID NOT, THAT HER PHYSICS TECHNICAL OFFICER TAKES CARE OF ALL HER NEEDS. THIS NURSE OFFERED CASE MANAGEMENT TO COME SEE THE PATIENT AND OFFER A LIST OF PROVIDER OPTIONS. PATIENT REFUSED.
--- NOTE | 2022-09-09 11:18 | PM.PN ---
Subjective Subjective: no new complaints Medications: Reviewed: Yes Vitals/I&O/Wt Last Vital Signs Temp 98.7 F 09/09/22 08:00 Pulse 119 H 09/09/22 08:00 Resp 18 09/09/22 08:31 BP 80/52 09/09/22 08:00 Pulse Ox 95 09/09/22 08:00 O2 Del Method Room Air 09/09/22 08:00 09/08/22 09/09/22 09/09/22 22:59 06:59 14:59 Intake Total 240 / 619.6 120 / 739.6 Balance 240 / 219.6 120 / 339.6 Weight last 48 hrs Weight 73.4 kg Physical Exam Narrative: sleeping , no distress S1 S2 RR per report lungs clear bella per report no edema Data 09/08/22 01:23 09/08/22 01:23 A&P Assessment and plan (1) ESRD on dialysis: Plan 1. End-stage renal disease: On home hemodialysis, per [facility] schedule. s/p HD tuesday , Next HD today 2. History of hypertension: Blood pressure on the low side, monitor 3. Small bowel obstruction, management per the general surgery, patient is n.p.o. Patient evaluated using audiovisual cart. Time spent 45 minutes Attestations Medical Necessity Statement*: per medicine Coding Level of Care Code Acute Code for Chg Fwd Diagnoses ESRD on dialysis N18.6; Z99.2
[2022-09-09 11:34] VITALS: RESP 18
--- NOTE | 2022-09-09 11:42 | PC.NURSE ---
IV out of Left AC. Intact. at bedside. Educated on diagnosis. Paperwork completed. Wheeled out via w/c to private vehicle.
== END 2022-09-09 11:45 | disposition home or self-care (01) | DRG 388 ==
LOC: ER 16:50 → MEDSURG 16:58
PROVIDERS: Family Medicine; Hospitalist; Admitting Provider Hospitalist; Emergency Provider Emergency Medicine; Visit Provider Internal Medicine
DX: K56.699 Other intestinal obstruction unspecified as to partial versus complete obstruction (principal); N18.6 End stage renal disease; I12.0 Hypertensive chronic kidney disease with stage 5 chronic kidney disease or end stage renal disease; T86.12 Kidney transplant failure; M80.88XA Other osteoporosis with current pathological fracture, vertebra(e), initial encounter for fracture; K59.03 Drug induced constipation; T40.2X5A Adverse effect of other opioids, initial encounter; Z79.891 Long term (current) use of opiate analgesic; Z99.2 Dependence on renal dialysis; G89.29 Other chronic pain; Y83.0 Surgical operation with transplant of whole organ as the cause of abnormal reaction of the patient, or of later complication, without mention of misadventure at the time of the procedure
CPT/HCPCS: 12345; 36415; 71045; 74018; 74176; 80048; 80053; 83605; 83735; 84100; 84703; 85025; 85610; 85730; 86705; 86706; 87340; 90935; 93005; 96372; 96374; 96375; 96376; 99285; C9113; J1170; J1200; J2060; J2212; J2270; J2405; J7030; P9047; Q3014

== ENCOUNTER 2023-01-16 09:25 | Emergency (ER) | payer MEDICARE, MEDICAID, SELFPAY ==
--- NOTE | 2023-01-16 09:27 | XRR_ITS ---
PROCEDURE INFORMATION: Exam: XR Right Hand Exam date and time: 01/16/2023 9:38 AM Age: 42 years old Clinical indication: Pain; Hand; Right; Additional info: Thumb pain TECHNIQUE: Imaging protocol: Radiologic exam of the right hand. Views: 3 or more views. COMPARISON: No relevant prior studies available. FINDINGS: Bones/joints: Severe erosive inflammatory change in the 1st interphalangeal joint in the DIP of all digits. Osteopenia of the distal radius. Periarticular erosions at the base of the 2nd and 5th proximal phalanx. Soft tissues: Calcifications within the soft tissues Vasculature: There is extensive vascular calcification. XR/XR hand RT min 3V* [id number] IMPRESSION: Findings suggestive of inflammatory arthropathy of the 1st interphalangeal joint in the DIP joints of all digits. Periarticular erosions at the base of the 2nd and 5th proximal phalanx. There is peripheral vascular disease and soft tissue calcifications. Findings are likely related to chronic renal disease.
[2023-01-16 09:53] VITALS: BP 141/82; PULSE 120; RESP 16; O2SAT 97
--- NOTE | 2023-01-16 10:14 | ED_ITS ---
HPI - Extremity Problem General: Chief complaint: Extremity Injury, Upper Stated complaint: Thumb pain on right hand Time Seen by Provider: 01/16/23 09:58 Source: patient Mode of arrival: ambulatory (with crutch assistance) Limitations: no limitations History of Present Illness: 22-year-old female with a history of chronic renal disease and on dialysis presents to the ER today for right thumb pain that began last night. Patient reports this is severe and any movement is severely painful. She reports there is some redness also noted at the joint on the right thumb. This is new for patient. She does use crutches to walk given her debility and being unable to move that right thumb is difficult for her. Patient does not have a local PCP. She does see a certified professional ergonomist and is on dialysis. Patient has never been previously diagnosed with any type of rheumatological disease. She reports she has been on prednisone in the past for different things and tolerates that okay. She denies any known injury to the thumb. Denies any fever or chills at this time. Patient has never seen Ortho regarding joint pain or joint issues. Review of Systems General: Reports: 10 or more systems reviewed and unremarkable except in HPI and below PFSH ED PFSH: Medical History Autosomal recessive polycystic kidney disease Constipation ESRD on dialysis On dialysis since age 19 due to failed renal transplant 1 para 1 History of vertebral fracture multiple thoracic and lumbar fractures from osteoporosis Osteoporosis Small bowel obstruction Therapeutic opioid-induced constipation (OIC) Surgical History Arteriovenous fistula of right upper extremity History of arthroscopy of right knee History of bilateral hip replacements History of renal transplant right kidney age 10 (father was donor), failed when 19 yo History of surgery on upper extremity Right elbow ligaments Family History Father Diabetes Social History Smoking and tobacco status: never smoked Alcohol intake: never Substance/Drug Use: never Marital status: Physical Exam Const: COMMON NORMALS: patient oriented x3, alert and well nourished HENMT: COMMON NORMALS: normocephalic and atraumatic HEAD & SCALP: normocephalic and atraumatic Eye: COMMON NORMALS: conjunctivae normal CONJUNCTIVA: Yes conjunctivae normal Resp: COMMON NORMALS: normal respiratory effort EFFORT & INSPECTION: Yes able to speak in complete sentences Cardio: COMMON NORMALS: regular rate and regular rhythm RATE: regular rate RHYTHM: regular rhythm Extremity: NARRATIVE EXTREMITY EXAM: Patient is noted to have mild to moderate swelling of the right thumb over the DIP joint. There is some mild erythema also noted in that area. No warmth. Significant tenderness with any movement of the thumb at both the DIP and the PIP joint. Neuro: COMMON NORMALS: patient oriented x3 SENSORIUM/ORIENTATION: Yes alert Psych: COMMON NORMALS: mental status grossly normal, Normal thought process present and cooperative THOUGHT PROCESS: Normal thought process present Skin: COMMON NORMALS: no rashes or lesions noted and no wounds GENERAL SKIN EXAM: no rashes or lesions noted Course ED course: Patient presents to the ER for right thumb pain that began late last night. Patient has a significant past medical history of chronic renal disease. She reports no rheumatological history at this time. She does not currently have a PCP but only a certified professional ergonomist and does dialysis. Patient is on oxycodone for chronic pain. Patient reports the oxycodone is not touching this pain. Any movement is severely irritating. Patient does use crutches to walk which makes it extremely difficult as she needs to use her thumb. Patient denies any fever or chills at this time. We will get imaging and discuss options. Vital Signs: Vital signs: Vital Signs Pulse Rate 120 H 01/16/23 09:53 Respiratory Rate 16 01/16/23 09:53 Blood Pressure 141/82 01/16/23 09:53 Pulse Oximetry 97 01/16/23 09:53 Oxygen Delivery Me thod Room Air 01/16/23 09:53 MDM - Extremity (Nontraumatic) Medical Decision Making Patient's x-ray indicates inflammatory arthropathy of the first interphalangeal joint and DIP joint. Patient is noted to have erosions of other joints in the hand also. Likely this is a flareup of the inflammatory arthropathy causing her significant pain. We will do a short course of steroids. I also suggest patient see orthopedics as this may become an ongoing issue. Patient has never had a rheumatological work-up however some of her issues may need further work- up. She does not currently have a PCP so I will place a care management referral for all of these things. Recommend patient continue all other home medications at this time. We did discuss a thumb spica splint. I would recommend she go pick 1 up as that likely will help with the discomfort. Also discussed Voltaren topical gel. Patient verbalized understanding and was in agreement with the treatment plan. Lab Data Radiology Impressions Hand X-Ray 01/16/23 09:27 IMPRESSION: Findings suggestive of inflammatory arthropathy of the 1st interphalangeal joint in the DIP joints of all digits. Periarticular erosions at the base of the 2nd and 5th proximal phalanx. There is peripheral vascular disease and soft tissue calcifications. Findings are likely related to chronic renal disease. All radiology interpretation(s) finalized by discharge Critical Care Time Critical Care Time: Critical Care Time: No Discharge Plan Discharge Patient Disposition: Home Clinical Impression: Pain of right thumb, Inflammatory arthritis Condition: Stable Prescriptions: New prednisone 20 mg tablet 40 mg PO DAILY 4 Days Qty: 8 0RF Rx Instructions: take in am with food No Action sevelamer HCl 800 mg tablet See Rx Instructions .ROUTE .COMPLEX Rx Instructions: TAKE 4 TABLETS BY MOUTH THREE TIMES DAILY WITH MEALS & TAKE 1 TABLET WITH SNACK alprazolam 0.25 mg tablet 0.25 mg PO DAILY PRN (Reason: Anxiety) temazepam 30 mg capsule 15 mg PO BEDTIME Benadryl 25 mg Capsule 75 mg PO BEDTIME megestrol 40 mg tablet 40 mg PO BEDTIME Stool Softener 100 mg Capsule 200 mg PO BID Viviana-Darrel 0.8 mg Tablet 1 tab PO BEDTIME oxycodone-acetaminophen 7.5-325 mg tablet 1 - 2 tab PO .EVERY 4-6 HOURS MDD 6 tabs PRN (Reason: Pain) ondansetron 4 mg tablet,disintegrating 4 mg PO Q8H PRN (Reason: Nausea And Vomiting) calcitriol 0.25 mcg capsule 0.75 mcg PO BEDTIME cinacalcet 90 mg tablet 180 mg PO BEDTIME RenaPlex-D 800 mcg-12.5 mg -2,000 unit tablet 1 tab PO DAILY Senna-S 8.6-50 mg tablet 1 tab-cap PO DAILY Qty: 60 0RF lactulose 20 gram/30 mL solution 20 g PO DAILY PRN (Reason: constipation) Qty: 1200 0RF Discharge Orders: Discharge ED (Routine); Ordered 01/16/23 Ordered By: Mague Jackson Discharge Diet: Usual diet Discharge Activity: Increase activity as tolerated Patient Instructions: Opioid Safety, Pain Management Activity Restrictions/Additional Instructions: Wear thumb spica splint as discussed, this can be purchased at a local [email or web address] or [employer]. Apply topical Voltaren gel as discussed. Take prednisone as prescribed. Establish care with a PCP to discuss further work-up of inflammatory arthritis. Return to the ER with new or worsening symptoms. Coding Level of Care Code ED Grain Farmer for Robbi Ng
--- NOTE | 2023-01-17 08:49 | PC.SOCIAL ---
Referrals Referral messages sent to [facility], [facility], and [facility] to establish primary care. Clinic are to contact patient with appt date/time.
--- NOTE | 2023-01-25 14:19 | PC.SOCIAL ---
Per ortho, patient needs to be referred to hand specialist. Attempted to reach patient to discuss this, unable to reach patient.
== END 2023-01-16 10:35 | disposition home or self-care (01) ==
PROVIDERS: Emergency Provider Physician Assistant
DX: M79.644 Pain in right finger(s) (principal); M13.841 Other specified arthritis, right hand; N18.6 End stage renal disease; Z99.2 Dependence on renal dialysis
CPT/HCPCS: 73130; 99283

== ENCOUNTER 2023-08-28 11:15 | Emergency (ER) | payer MEDICARE, MEDICAID, SELFPAY ==
[2023-08-28 11:19] VITALS: BP 158/90; PULSE 118; RESP 24; TEMP 36.4; O2SAT 100
--- NOTE | 2023-08-28 11:24 | ECG_ITS ---
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 Measurements Intervals [place] Rate: 117 P: 32 MT: 133 QRS: -18 QRSD: 107 T: 67 QT: 341 QTc: 476 Interpretive Statements SINUS TACHYCARDIA POSSIBLE LEFT ATRIAL ENLARGEMENT [-0.1mV P-WAVE IN V1/V2] LEFT VENTRICULAR HYPERTROPHY AND ST-T CHANGE [VOLTAGE CRITERIA PLUS ST/T ABNORMALITY] POSSIBLE SEPTAL MYOCARDIAL INFARCTION , PROBABLY OLD [30 ms Q WAVE IN V1/V2] Compared to ECG 09/06/2022 18:24:51 Left ventricular hypertrophy now present ST (T wave) deviation now present Left-axis deviation no longer present Myocardial infarct finding still present Electronically Signed On 08-28-2023 12:22:51 CDT by Reed Ritchie M.D. [email or web address]
--- NOTE | 2023-08-28 11:30 | XRR_ITS ---
PROCEDURE INFORMATION: Exam: XR Chest Exam date and time: 08/28/2023 12:23 PM Age: 43 years old Clinical indication: Shortness of breath; Patient HX: SOB; Esrd; Chest tightness TECHNIQUE: Imaging protocol: Radiologic exam of the chest. Views: 1 view. COMPARISON: CR XR chest 1V portable [id number] 09/06/2022 4:55 PM FINDINGS: Lungs: Curvilinear bilateral opacities which can be seen with emphysematous lung changes. Enlarged vascular pedicle which may represent increased lung volumes. Pleural spaces: No pneumothorax, or pleural effusion. Heart/Mediastinum: Moderate cardiomegaly. Bones/joints: Chronic osseous deformities of the bilateral lateral ribs, and shoulder/glenohumeral joints. XR/XR chest 1V [id number] IMPRESSION: 1. Moderate cardiomegaly. 2. Emphysematous lung changes. 3. Enlarged vascular pedicle which may represent increased lung volumes.
[2023-08-28 12:42] LABS: Basophils % 0.7 %; Eosinophils # 0.2 10^3/uL (0.0-0.8); Eosinophils % 2.9 %; Hematocrit 38.3 % (36-47); Lymphocytes % 17.2 %; Mean Corpuscular HGB Conc 31.6 g/dL (30-55); Mean Corpuscular Volume 82.4 fl (85-98); Mean Platelet Volume 9.6 fL (7.4-10.4); Monocytes # 0.6 10^3/uL (0.2-0.9); Neutrophils # 3.79 10^3/uL (1.8-7.7); Nucleated Red Blood Cells % 0 %; Platelet Count 259 10^3/cmm (157-399); Red Blood Count 4.65 10^6/uL (3.85-5.65); Red Cell Distribution Width 18.3 % (12.1-15.1); White Blood Count 5.57 10^3/uL (3.29-11.43)
--- NOTE | 2023-08-28 12:48 | ED_ITS ---
HPI - SOB/Dyspnea 2 General: Chief Complaint: Shortness of Breath/Dyspnea Stated Complaint: SOB chest tightness Time Seen by Provider: 08/28/23 12:26 Source: patient Mode of arrival: ambulatory History of Present Illness: HPI Narrative: 43-year-old female presents to the emerg ency room with complaints of shortness of breath. She has some orthopnea this evidently has been going on for well over a week she occasionally gets some tightness in her chest. She has a history of polycystic kidney disease that has been on dialysis for at least 2 decades. She is going to dialysis regularly. No history of DVT or PE he is not on any anticoagulants. No fever sweats chills productive cough no hemoptysis. MD elicited complaint: shortness of breath Exacerbating factors: nothing Relieving factors: nothing Associated symptoms: Reports orthopnea; Deny abdominal pain, chest congestion, chest pain, cough, diaphoresis, dizziness, extremity pain, fever(s), hemoptysis, lightheadedness, myalgias, nausea, palpitations, paresthesias, polydipsia, polyuria, rash, sense of impending doom, syncope or vomiting Review of Systems 2 Const: Denies: fever(s), chills or diaphoresis ENMT: Reports: nasal congestion Card: Reports: orthopnea; Denies: chest pain, palpitations, lightheadedness or syncope Resp: Reports: dyspnea; Denies: productive cough, wheezing, hemoptysis or chest congestion GI: Denies: abdominal pain, nausea or vomiting : Denies: dysuria, urinary frequency or urinary urgency Musc: Denies: neck pain, back pain or extremity pain Skin/Breast: Denies: rash Neuro: Denies: dizziness Endo: Denies: polyuria or polydipsia PFSH ED 2 PFSH: Medical History Therapeutic opioid-induced constipation (OIC) History of vertebral fracture multiple thoracic and lumbar fractures from osteoporosis Constipation Autosomal recessive polycystic kidney disease Osteoporosis 1 para 1 Small bowel obstruction ESRD on dialysis On dialysis since age 19 due to failed renal transplant Surgical History Arteriovenous fistula of right upper extremity History of surgery on upper extremity Right elbow ligaments History of arthroscopy of right knee History of bilateral hip replacements History of renal transplant right kidney age 10 (father was donor), failed when 19 yo Family History Father Diabetes Social History Smoking and tobacco/nicotine status: never used tobacco/nicotine Alcohol intake: never Substance/Drug Use: never Marital status: Physical Exam 2 Const: COMMON NORMALS: no acute distress GENERAL APPEARANCE: cooperative and comfortable ORIENTATION/CONSCIOUSNESS: Yes awake, Yes oriented to person, Yes oriented to place and Yes oriented to time HENMT: COMMON NORMALS: normocephalic, atraumatic and hearing grossly normal bilaterally HEAD & SCALP: normocephalic and atraumatic Resp: COMMON NORMALS: normal respiratory effort, No retractions, No use of accessory muscles and clear to auscultation bilaterally AUSCULTATION: clear to auscultation bilaterally Cardio: COMMON NORMALS: regular rate, regular rhythm and No murmurs present (Cardio) RATE: regular rate RHYTHM: regular rhythm GI: COMMON NORMALS: Soft to palpation and No hepatosplenomegaly present A USCULTATION: Yes normoactive bowel sounds PALPATION: Yes Soft to palpation, No Tenderness to palpation present (GI), No Guarding due to palpation present (GI) and Yes No hepatosplenomegaly present Extremity: COMMON NORMALS: normal to inspection, capillary refill normal, no clubbing, cyanosis or edema, no calf tenderness and no pedal edema Neuro: SENSORIUM/ORIENTATION: Yes oriented to person, Yes oriented to place and Yes oriented to time Skin: COMMON NORMALS: no rashes or lesions noted GENERAL SKIN EXAM: no rashes or lesions noted Course 2 Vital Signs: Vital signs: Vital Signs Temperature 97.6 F 08/28/23 11:19 Pulse Rate 109 H 08/28/23 16:59 Respiratory Rate 16 08/28/23 16:59 Blood Pressure 158/90 08/28/23 11:19 Pulse Oximetry 98 08/28/23 16:59 Oxygen Delivery Me thod Room Air 08/28/23 16:59 MDM - SOB/Dyspnea Medical Decision Making Patient is complaining of shortness of breath and tightness. She is tachycardic and reports shortness of breath with activity she is also little bit tachypneic at times her oxygen sats remain normal D-dimer is elevated. She had concerns about contrast discussed with her that since she is already on dialysis really a nonissue contrast use now is very minimally renal toxic she is due for dialysis tomorrow. CTA of the chest did not show any dissection, no PEs no pneumonias no pneumothorax. Cardiac enzymes and EKGs did not show signs of acute coronary syndrome. Patient has significantly Decreased lung capacity due to his stature. Suspect that is what is causing her shortness of breath. Rule out all the immediate chest pain risks at this point. Will set her up for outpatient pulmonary function tests and referral for PCP for further evaluation. Medical Records I reviewed the patient's medical records. Lab Data I reviewed the patient's lab results. 08/28/23 12:30 08/28/23 12:30 Labs/Radiology: Radiology Impressions Chest X-Ray 08/28/23 11:30 IMPRESSION: 1. Moderate cardiomegaly. 2. Emphysematous lung changes. 3. Enlarged vascular pedicle which may represent increased lung volumes. Chest CTA 08/28/23 14:17 IMPRESSION: 1. No pulmonary embolism. 2. Severe renal osteodystrophy with marked compression osseous deformity of T8 vertebral body. No marked central canal stenosis. 3. Atrophic bilateral kidneys. Laboratory Results WBC 5.57 10^3/uL (3.29-11.43) 08/28/23 12:30 RBC 4.65 10^6/uL (3.85-5.65) 08/28/23 12:30 Hgb 12.10 g/dL (11.27-16.99) 08/28/23 12:30 Hct 38.3 % (36-47) 08/28/23 12:30 MCV 82.4 fl (85-98) L 08/28/23 12:30 MCH 26.0 pg (27-33) L 08/28/23 12:30 MCHC 31.6 g/dL (30-55) 08/28/23 12:30 RDW 18.3 % (12.1-15.1) H 08/28/23 12:30 Plt Count 259 10^3/cmm (157-399) 08/28/23 12:30 MPV 9.6 fL (7.4-10.4) 08/28/23 12:30 Neut % (Auto) 68.0 % 08/28/23 12:30 Lymph % (Auto) 17.2 % 08/28/23 12:30 [place] % (Auto) 11.0 % 08/28/23 12:30 Eos % (Auto) 2.9 % 08/28/23 12:30 Baso % (Auto) 0.7 % 08/28/23 12:30 Neut # (Auto) 3.79 10^3/uL (1.8-7.7) 08/28/23 12:30 Lymph # (Auto) 1.0 10^3/uL (0.8-4.8) 08/28/23 12:30 [place] # (Auto) 0.6 10^3/uL (0.2-0.9) 08/28/23 12:30 Eos # (Auto) 0.2 10^3/uL (0.0-0.8) 08/28/23 12:30 Baso # (Auto) 0.0 10^3/uL (0.0-0.1) 08/28/23 12:30 Nucleated RBC % (auto) 0 % 08/28/23 12:30 Nucleated RBCs # 0.0 /100WBC 08/28/23 12:30 D-Dimer 3.49 ug/mLFEU (0-0.59) H 08/28/23 12:30 Sodium 133 mmol/L (136-145) L 08/28/23 12:30 Potassium 3.8 mmol/L (3.5-5.1) 08/28/23 12:30 Chloride 90 mmol/L (98-107) L 08/28/23 12:30 Carbon Dioxide 21 mmol/L (22-29) L 08/28/23 12:30 Anion Gap 25.8 (5-19) H 08/28/23 12:30 BUN 48 mg/dL (6-20) H 08/28/23 12:30 Creatinine 7.2 mg/dL (0.5-0.9) H* 08/28/23 12:30 GFR Calculation 6.2 mL/min (90-130) L 08/28/23 12:30 Glucose 94 mg/dL (65-115) 08/28/23 12:30 Calculated Osmolality 288 mOsm/kg (285-295) 08/28/23 12:30 Lactic Acid 0.9 mmol/L (0.5-2.2) 08/28/23 12:30 Calcium 10.2 mg/dL (8.5-10.5) 08/28/23 12:30 Phosphorus 6.4 mg/dL (2.5-4.5) H 08/28/23 12:30 Magnesium 2.4 mg/dL (1.7-2.3) H 08/28/23 12:30 Total Bilirubin 0.2 mg/dL (0.15-1.2) 08/28/23 12:30 AST 27 U/L (0-32) 08/28/23 12:30 ALT 20 U/L (0-33) 08/28/23 12:30 Alkaline Phosphatase 95 U/L (35-105) 08/28/23 12:30 Troponin T Baseline 49 ng/L (0-10) H 08/28/23 12:30 Troponin T 120 Minute 50.22 ng/L (0-10) H 08/28/23 14:30 Delta Troponin T 1.22 ABS# (0-10) 08/28/23 14:30 Total Protein 7.9 g/dL (6.6-8.7) 08/28/23 12:30 Albumin 4.5 g/dL (3.5-5.2) 08/28/23 12:30 Globulin 3.4 g/dL (1.3-4.6) 08/28/23 12:30 Adenovirus (PCR) Not detected (NOT DETECT) 08/28/23 15:29 C. pneumoniae DNA (PCR) Not detected (NOT DETECT) 08/28/23 15:29 Coronavirus 229E (PCR) Not detected (NOT DETECT) 08/28/23 15:29 Human Metapneumovir PCR Not detected (NOT DETECT) 08/28/23 15:29 Influenza A (H1) PCR Not detected (NOT DETECT) 08/28/23 15:29 Influ A (H1/09) PCR Not detected (NOT DETECT) 08/28/23 15:29 Influenza A (H3) PCR Not detected (NOT DETECT) 08/28/23 15:29 Influenza Type A (PCR) Not detected (NOT DETECT) 08/28/23 15:29 Influenza Type B (PCR) Not detected (NOT DETECT) 08/28/23 15:29 M. pneumoniae (PCR) Not detected (NOT DETECT) 08/28/23 15:29 Parainfluenza 1 (PCR) Not detected (NOT DETECT) 08/28/23 15:29 Parainfluenza 2 (PCR) Not detected (NOT DETECT) 08/28/23 15:29 Parainfluenza 3 (PCR) Not detected (NOT DETECT) 08/28/23 15:29 Parainfluenza 4 (PCR) Not detected (NOT DETECT) 08/28/23 15:29 RSV Type A (PCR) Not detected (NOT DETECT) 08/28/23 15:29 RSV Type B (PCR) Not detected (NOT DETECT) 08/28/23 15:29 Entero/Rhino (PCR) Not detected (NOT DETECT) 08/28/23 15:29 SARS-CoV-2 (PCR) Not detected (NOT DETECT) 08/28/23 15:29 All radiology interpretation(s) finalized by discharge Discharge Plan Discharge Patient Disposition: Home Clinical Impression: Dyspnea on exertion Condition: Stable Prescriptions: New albuterol sulfate 90 mcg/actuation HFA aerosol inhaler 2 inh INHALATION Q4H PRN (Reason: shortness of breath or wheezing) Qty: 18 0RF No Action sevelamer HCl 800 mg tablet See Rx Instructions .ROUTE .COMPLEX Rx Instructions: TAKE 4 TABLETS BY MOUTH THREE TIMES DAILY WITH MEALS & TAKE 1 TABLET WITH SNACK alprazolam 0.25 mg tablet 0.25 mg PO DAILY PRN (Reason: Anxiety) temazepam 30 mg capsule 15 mg PO BEDTIME Benadryl 25 mg Capsule 75 mg PO BEDTIME megestrol 40 mg tablet 40 mg PO BEDTIME Stool Softener 100 mg Capsule 200 mg PO BID Viviana-Darrel 0.8 mg Tablet 1 tab PO BEDTIME oxycodone-acetaminophen 7.5-325 mg tablet 1 - 2 tab PO .EVERY 4-6 HOURS MDD 6 tabs PRN (Reason: Pain) ondansetron 4 mg tablet,disintegrating 4 mg PO Q8H PRN (Reason: Nausea And Vomiting) calcitriol 0.25 mcg capsule 0.75 mcg PO BEDTIME cinacalcet 90 mg tablet 180 mg PO BEDTIME RenaPlex-D 800 mcg-12.5 mg -2,000 unit tablet 1 tab PO DAILY Senna-S 8.6-50 mg tablet 1 tab-cap PO DAILY Qty: 60 0RF lactulose 20 gram/30 mL solution 20 g PO DAILY PRN (Reason: constipation) Qty: 1200 0RF Discharge Orders: Discharge ED (Routine); Ordered 08/28/23 Ordered By: Mega Shirley Discharge Diet: Usual diet Discharge Activity: Resume usual activity Patient Instructions: Opioid Safety, Pain Management Activity Restrictions/Additional Instructions: Thank you for choosing [facility] for your healthcare needs today. Please realize this is an emergency room and that we are providing you with a medical screening exam and this may not be complete and all inclusive of all the testing and or work up that you may need to determine your ailment or severity of your illness. It is very important that you follow up as instructed or that you return to the Emergency Department should you have concerns or if your condition changes or worsens in any way. You were seen today with complaint of shortness of breath. CTA of your chest did not show pneumothorax pneumonia pulmonary embolism or aneurysm. Cardiac enzymes and EKG did not show any acute abnormalities. Recommend you follow-up and establish with a primary care provider case management will make arrangements for you to have pulmonary function tests Coding Level of Care Code ED Intellectual Property Lawyer for Robbi Ng
[2023-08-28 12:56] LABS: Alanine Aminotransferase 20 U/L (0-33); Albumin Level 4.5 g/dL (3.5-5.2); Alkaline Phosphatase 95 U/L (35-105); Blood Urea Nitrogen 48 mg/dL (6-20); Calcium 10.2 mg/dL (8.5-10.5); Carbon Dioxide 21 mmol/L (22-29); Chloride 90 mmol/L (98-107); Creatinine Clr Calc Pharmacy 10.0429; Globulin 3.4 g/dL (1.3-4.6); Glomerular Filtration Rate 6.2 mL/min (90-130); Glucose 94 mg/dL (65-115); Magnesium 2.4 mg/dL (1.7-2.3); Osmolality Calculated 288 mOsm/kg (285-295); Phosphorus 6.4 mg/dL (2.5-4.5); Sodium 133 mmol/L (136-145); Total Bilirubin 0.2 mg/dL (0.15-1.2); Total Protein 7.9 g/dL (6.6-8.7); Troponin(5th) Baseline 49 ng/L (0-10)
[2023-08-28 12:57] LABS: Lactic Sepsis W/Reflex 0.9 mmol/L (0.5-2.2)
[2023-08-28 13:19] LABS: Anion Gap 25.8 (5-19); Aspartate Amino Transferase 27 U/L (0-32); Potassium 3.8 mmol/L (3.5-5.1)
--- NOTE | 2023-08-28 13:38 | ECG_ITS ---
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 Measurements Intervals Violet Rate: 99 P: 28 MT: 146 QRS: -22 QRSD: 110 T: 71 QT: 384 QTc: 493 Interpretive Statements SINUS RHYTHM POSSIBLE LEFT ATRIAL ENLARGEMENT [-0.1mV P-WAVE IN V1/V2] LEFT VENTRICULAR HYPERTROPHY AND ST-T CHANGE [VOLTAGE CRITERIA PLUS ST/T ABNORMALITY] POSSIBLE SEPTAL MYOCARDIAL INFARCTION , OF INDETERMINATE AGE [30 ms Q WAVE IN V1/V2] Compared to ECG 08/28/2023 11:24:37 Sinus tachycardia no longer present ST (T wave) deviation still present Myocardial infarct finding still present Electronically Signed On 08-29-2023 11:01:01 CDT by Reed Ritchie M.D. [id number]
[2023-08-28 13:54] LABS: D Dimer 3.49 ug/mLFEU (0-0.59)
--- NOTE | 2023-08-28 14:17 | CTR_ITS ---
PROCEDURE INFORMATION: Exam: CTA Chest With Contrast Exam date and time: 08/28/2023 2:51 PM Age: 43 years old Clinical indication: Dyspnea; Additional info: Dyspnea/elevated d dimer TECHNIQUE: Imaging protocol: Computed tomographic angiography of the chest with contrast. Exam focused on the arteries. 3D rendering (Not supervised by radiologist): MIP and/or 3D reconstructed images were created by the technologist. Radiation optimization: All CT scans at this facility use at least one of these dose optimization techniques: automated exposure control; mA and/or kV adjustment per patient size (includes targeted exams where dose is matched to clinical indication); or iterative reconstruction. Contrast material: OMNI 350; Contrast volume: 75 ml; Contrast route: INTRAVENOUS (IV); COMPARISON: CR (CHEST, ) 08/28/2023 12:23 PM RADIATION DOSE METRICS: Total DLP (mGy-cm): 381.51 FINDINGS: Pulmonary arteries: Adequate visualization of the pulmonary arteries to the subsegmental level. No pulmonary embolism. Aorta: Ascending aorta is normal in caliber. Lungs: Bibasilar atelectatic lung changes. Central airways are patent, mild distal bronchial wall thickening, which can be seen with chronic bronchitis. Pleural spaces: Unremarkable. No pneumothorax. No pleural effusion. Heart: Unremarkable. No cardiomegaly. No pericardial effusion. Coronary arteries: Minimal coronary artery calcifications. Lymph nodes: Unremarkable. No enlarged lymph nodes. Diaphragm: Small hiatal hernia. Kidneys and ureters: Atrophic bilateral kidneys. Bones/joints: Significant bilateral degenerative changes of the shoulder joints. Severe renal osteodystrophy with marked compression osseous deformity of T8 vertebral body with exaggerated kyphotic curvature of the thoracic vertebrae. Soft tissues: Unremarkable. CT/CT angio chest PE protcl [id number] IMPRESSION: 1. No pulmonary embolism. 2. Severe renal osteodystrophy with marked compression osseous deformity of T8 vertebral body. No marked central canal stenosis. 3. Atrophic bilateral kidneys.
[2023-08-28 14:50] LABS: Troponin 5 2HR 50.22 ng/L (0-10); Troponin 5 2HR Delta 1.22 ABS# (0-10)
[2023-08-28] MEDS: iohexol 350 mg/mL 500 mL Btl (per mL) IV (14:51)
[2023-08-28 16:59] VITALS: PULSE 109; RESP 16; O2SAT 98
[2023-08-28] MEDS: ipratropium-albuterol 3 mL Neb INHALATION (16:59)
[2023-08-28 17:18] LABS: Adenovirus Not Detected (NOT DETECT); Chlamydia Pneumoniae Not Detected (NOT DETECT); Coronavirus 229E,HKU1,NL63,OC4 Not Detected (NOT DETECT); Human Metapneumovirus Not Detected (NOT DETECT); Human Rhinovirus/Enterovirus Not Detected (NOT DETECT); Influenza A Not Detected (NOT DETECT); Influenza A H1 Not Detected (NOT DETECT); Influenza A H1-2009 Not Detected (NOT DETECT); Influenza A H3 Not Detected (NOT DETECT); Influenza B Not Detected (NOT DETECT); Mycoplasma Pneumoniae Not Detected (NOT DETECT); Parainfluenza Virus Type 1 Not Detected (NOT DETECT); Parainfluenza Virus Type 2 Not Detected (NOT DETECT); Parainfluenza Virus Type 3 Not Detected (NOT DETECT); Parainfluenza Virus Type 4 Not Detected (NOT DETECT); Respiratory Syncytial Virus A Not Detected (NOT DETECT); Respiratory Syncytial Virus B Not Detected (NOT DETECT); SARS-COV-2 Not Detected (NOT DETECT)
[2023-08-28 18:07] VITALS: PULSE 87; O2SAT 98
--- NOTE | 2023-09-06 11:03 | DCPLANNER ---
Message sent to Pulmonary department to follow up with patient -
== END 2023-08-28 18:09 | disposition home or self-care (01) ==
PROVIDERS: Emergency Medicine; Emergency Provider Family Medicine
DX: R06.00 Dyspnea, unspecified (principal); Z11.52 Encounter for screening for COVID-19; N18.6 End stage renal disease; Z99.2 Dependence on renal dialysis; Z94.0 Kidney transplant status
CPT/HCPCS: 71045; 71275; 80053; 83605; 83735; 84100; 84484; 85025; 85378; 87486; 87581; 87633; 93005; 94640; 99285; Q9967